=== PATIENT | male | born 1965 ===

== ENCOUNTER 2021-06-04 09:35 | Emergency (ER) | payer SELFPAY ==
[2021-06-04 09:45] VITALS: BP 138/75; PULSE 77; RESP 16; TEMP 36.6; O2SAT 96; BMI 33.6
--- NOTE | 2021-06-04 10:19 | CTR_ITS ---
PROCEDURE INFORMATION: Exam: CT Neck With Contrast Exam date and time: 06/04/2021 12:13 PM Age: 56 years old Clinical indication: Other: Right mastoid pain into; Additional info: Concern for mastoiditis TECHNIQUE: Imaging protocol: Computed tomography images of the neck with contrast. Total images: 274 Radiation optimization: All CT scans at this facility use at least one of these dose optimization techniques: automated exposure control; mA and/or kV adjustment per patient size (includes targeted exams where dose is matched to clinical indication); or iterative reconstruction. Contrast material: OMNIPAQUE 300; Contrast volume: 95 ml; Contrast route: INTRAVENOUS (IV); COMPARISON: No relevant prior studies available. RADIATION DOSE METRICS: Total DLP (mGy-cm): 458.91 FINDINGS: Mastoid air cells: Right mastoid air cells are normally aerated and there are no adjacent inflammatory changes. Nasopharynx: Unremarkable. Oropharynx: Unremarkable. No significant tonsillar enlargement. Hypopharynx: Unremarkable. Larynx: Unremarkable. Normal epiglottis. Retropharyngeal space: Unremarkable. Submandibular/Parotid glands: Slightly higher heterogeneous attenuation of the right parotid gland without significant adjacent fatty stranding but may represent a mild parotiditis. Thyroid: Normal. No enlarged or calcified nodules. Lymph nodes: Unremarkable. No lymphadenopathy. Trachea: Visualized trachea is unremarkable. Lungs: Unremarkable as visualized. Bones/joints: Unremarkable. No acute fracture. Soft tissues: Unremarkable. No significant soft tissue swelling. CT/CT neck w con* [id number] IMPRESSION: 1. Slightly higher heterogeneous attenuation of the right parotid gland without significant adjacent fatty stranding but may represent a mild parotiditis. 2. Right mastoid air cells are normally aerated and there are no adjacent inflammatory changes.
--- NOTE | 2021-06-04 10:36 | W.ED.HA ---
HPI - Headache General: Chief Complaint: Headache Stated Complaint: Pain in the back of neck, meds not working Time Seen by Provider: 06/04/21 09:52 History of Present Illness: Patient comes in complaining of pain behind his right ear that started a couple of days ago. States he woke up with it. Describes it as constant, sharp. Was seen at a clinic yesterday and started on eardrops for otitis externa. States these have not helped. Denies any injury. Denies any medical problems including no diabetes. Associated symptoms: Deny chest pain, fever(s), nausea, rash or vomiting Review of Systems Const: Denies: fever(s) or body aches Eyes: Denies: change in vision or blurry vision ENMT: Denies: throat pain or odynophagia Card: Denies: chest pain or palpitations Resp: Denies: dyspnea or productive cough GI: Denies: abdominal pain, nausea or vomiting : Denies: flank pain or dysuria Musc: Denies: neck pain or back pain Skin/Breast: Denies: rash or pruritus Neuro: Reports: headache(s); Denies: numbness in extremities Psych: Denies: anxiety or change in appetite Endo: Denies: polyuria or excessive sweating PFSH ED PFSH: Medical History No active medical problems Surgical History No history of previous surgery Family History Denies family history of Diabetes Chronic kidney disease (CKD) Suicide Cancer Hypertension Stroke Social History Smoking and tobacco status: never smoked Alcohol intake: current Alcohol intake frequency: holidays/special occasions only Household members: spouse Housing: House Marital status: Number of children: 4 Highest education level completed: High School Graduate service: No Current occupational status: employed Pets and animals: No Current gender identity: Male Physical Exam Const: COMMON NORMALS: no acute distress, patient oriented x3, healthy appearing and alert HENMT: COMMON NORMALS: normocephalic and atraumatic HEAD & SCALP: normocephalic, atraumatic and other (Tenderness to palpation of the right posterior auricular region) Eye: COMMON NORMALS: Equal, round and reactive pupils present and EOMs intact bilaterally PUPIL: Yes Equal, round and reactive pupils present Neck/C-Spine: COMMON NORMALS: full ROM and supple Resp: COMMON NORMALS: normal respiratory effort, No retractions and No use of accessory muscles Cardio: COMMON NORMALS: regular rate and regular rhythm RATE: regular rate RHYTHM: regular rhythm GI: COMMON NORMALS: Normal to inspection, nondistended, normoactive bowel sounds present, Soft to palpation and non-tender PALPATION: Yes Soft to palpation Back/Pelvis: COMMON NORMALS: thoracic and lumbar spine normal to inspection and no thoracic nor lumbar tenderness Extremity: COMMON NORMALS: normal to inspection and full ROM Neuro: COMMON NORMALS: patient oriented x3 SENSORIUM/ORIENTATION: Yes alert Psych: COMMON NORMALS: mental status grossly normal and cooperative Skin: COMMON NORMALS: no rashes or lesions noted and no wounds GENERAL SKIN EXAM: no rashes or lesions noted Course Vital Signs: Vital signs: Vital Signs Temperature 97.9 F 06/04/21 09:45 Pulse Rate 77 06/04/21 09:45 Respiratory Rate 16 06/04/21 09:45 Blood Pressure 138/75 06/04/21 09:45 Pulse Oximetry 96 06/04/21 09:45 MDM - Headache Medical Decision Making Patient comes in complaining of pain behind his right ear that started a couple of days ago. States he woke up with it. Describes it as constant, sharp. Was seen at a clinic yesterday and started on eardrops for otitis externa. States these have not helped. Denies any injury. Denies any medical problems including no diabetes. On physical exam he has tenderness over the right posterior auricular region. Will check labs, treat pain with IV Toradol, check CT scan, and reassess. On reassessment I talked to the patient about the test results. Encouraged him to follow-up with primary care. He states he does not have a primary care doctor and will just get one later. The gentleman who is here with him states they are only here to get pain pills. I informed him that there is no indication for narcotic pain medication at this time. Encouraged him to use anti-inflammatories and heat. Will discharge at this time. Lab Data : 06/04/21 10:45 06/04/21 10:[address] 06/04/21 10:19 IMPRESSION: 1. Slightly higher heterogeneous attenuation of the right parotid gland without significant adjacent fatty stranding but may represent a mild parotiditis. 2. Right mastoid air cells are normally aerated and there are no adjacent inflammatory changes. Laboratory Results WBC 8.5 10^3/uL (4.0-10.0) 06/04/21 10:45 RBC 5.24 10^6/uL (4.1-5.3) 06/04/21 10:45 Hgb 15.6 g/dL (11.7-16.6) 06/04/21 10:45 Hct 47.0 % (42.0-52.0) 06/04/21 10:45 MCV 89.7 fl (80-94) 06/04/21 10:45 MCH 29.8 pg (28.0-34.0) 06/04/21 10:45 MCHC 33.2 g/dL (30.0-36.0) 06/04/21 10:45 RDW 13.4 % (12.1-15.1) 06/04/21 10:45 Plt Count 243 10^3/cmm (130-400) 06/04/21 10:45 MPV 9.5 fL (7.4-10.4) 06/04/21 10:45 Neut % (Auto) 65.9 % 06/04/21 10:45 Lymph % (Auto) 25.3 % 06/04/21 10:45 [place] % (Auto) 6.0 % 06/04/21 10:45 Eos % (Auto) 2.0 % 06/04/21 10:45 Baso % (Auto) 0.4 % 06/04/21 10:45 Neut # (Auto) 5.57 10^3/uL (1.8-7.7) 06/04/21 10:45 Lymph # (Auto) 2.1 10^3/uL (0.8-4.8) 06/04/21 10:45 [place] # (Auto) 0.5 10^3/uL (0.2-0.9) 06/04/21 10:45 Eos # (Auto) 0.2 10^3/uL (0.0-0.8) 06/04/21 10:45 Baso # (Auto) 0.0 10^3/uL (0.0-0.1) 06/04/21 10:45 Nucleated RBC % (auto) 0 % 06/04/21 10:45 Nucleated RBCs # 0.0 /100WBC 06/04/21 10:45 Sodium 139 mmol/L (136-145) 06/04/21 10:45 Potassium 4.2 mmol/L (3.5-5.1) 06/04/21 10:45 Chloride 106 mmol/L (98-107) 06/04/21 10:45 Carbon Dioxide 24 mmol/L (22-29) 06/04/21 10:45 Anion Gap 13.2 (5-19) 06/04/21 10:45 BUN 23 mg/dL (6-20) H 06/04/21 10:45 Creatinine 0.6 mg/dL (0.7-1.2) L 06/04/21 10:45 GFR Calculation 138.4 mL/min (90-130) H 06/04/21 10:45 Glucose 129 mg/dL (65-115) H 06/04/21 10:45 Calculated Osmolality 293 mOsm/kg (285-295) 06/04/21 10:45 Calcium 8.2 mg/dL (8.5-10.5) L 06/04/21 10:45 Total Bilirubin 0.3 mg/dL (0.15-1.2) 06/04/21 10:45 AST 23 U/L (0-40) 06/04/21 10:45 ALT 46 U/L (0-41) H 06/04/21 10:45 Alkaline Phosphatase 117 IU/L (40-130) 06/04/21 10:45 Total Protein 7.3 g/dL (6.6-8.7) 06/04/21 10:45 Albumin 4.3 g/dL (3.5-5.2) 06/04/21 10:45 Globulin 3.0 g/dL (1.3-4.6) 06/04/21 10:45 Discharge Plan Discharge Patient Disposition: Home Clinical Impression: Acute parotitis Condition: Stable Prescriptions: No Action [id number] 3.5-10,000-1 mg/mL-unit/mL-% drops,suspension 4 drp otic (ear) TID 10 Days Qty: 10 0RF Rx Instructions: for 10 days Discharge Orders: Discharge ED (Routine); Ordered 06/04/21 Ordered By: Jarett Zhou Coding Level of Care Code ED Sugar Presser for Chg Fwd Exam Comprehensive
[2021-06-04] MEDS: ketorolac 30 mg/mL INJ IVP (10:40)
[2021-06-04 11:01] LABS: Basophils % 0.4 %; Eosinophils # 0.2 10^3/uL (0.0-0.8); Hemoglobin 15.6 g/dL (11.7-16.6); Lymphocytes # 2.1 10^3/uL (0.8-4.8); Lymphocytes % 25.3 %; Mean Corpuscular HGB Conc 33.2 g/dL (30.0-36.0); Mean Corpuscular Hemoglobin 29.8 pg (28.0-34.0); Mean Corpuscular Volume 89.7 fl (80-94); Mean Platelet Volume 9.5 fL (7.4-10.4); Monocytes # 0.5 10^3/uL (0.2-0.9); Neutrophils # 5.57 10^3/uL (1.8-7.7); Neutrophils % 65.9 %; Nucleated Red Blood Cells % 0 %; Platelet Count 243 10^3/cmm (130-400); Red Blood Count 5.24 10^6/uL (4.1-5.3); Red Cell Distribution Width 13.4 % (12.1-15.1); White Blood Count 8.5 10^3/uL (4.0-10.0)
[2021-06-04 11:33] LABS: Alanine Aminotransferase 46 U/L (0-41); Albumin Level 4.3 g/dL (3.5-5.2); Alkaline Phosphatase 117 IU/L (40-130); Anion Gap 13.2 (5-19); Aspartate Amino Transferase 23 U/L (0-40); Blood Urea Nitrogen 23 mg/dL (6-20); Calcium 8.2 mg/dL (8.5-10.5); Carbon Dioxide 24 mmol/L (22-29); Chloride 106 mmol/L (98-107); Glomerular Filtration Rate 138.4 mL/min (90-130); Glucose 129 mg/dL (65-115); Osmolality Calculated 293 mOsm/kg (285-295); Potassium 4.2 mmol/L (3.5-5.1); Sodium 139 mmol/L (136-145); Total Bilirubin 0.3 mg/dL (0.15-1.2); Total Protein 7.3 g/dL (6.6-8.7)
[2021-06-04] MEDS: iohexol 300 mg/mL 100 mL Btl IV (12:20)
[2021-06-04] MEDS: dexamethasone 10 mg/mL INJ IVP (13:15)
== END 2021-06-04 13:31 | disposition home or self-care (01) ==
PROVIDERS: Emergency Provider Emergency Medicine
DX: K11.21 Acute sialoadenitis (principal)
CPT/HCPCS: 70491; 80053; 85025; 96374; 96375; 99283; J1100; J1885; Q9967

== ENCOUNTER → 2022-08-29 08:39 | Outpatient (BNVA) | payer SELFPAY | PROVIDERS: Visit Provider Nurse Practitioner Family | DX: S69.92XA Unspecified injury of left wrist, hand and finger(s), initial encounter (principal); M86.8X4 Other osteomyelitis, hand; W45.8XXA Other foreign body or object entering through skin, initial encounter | CPT/HCPCS: 73130 ==

== ENCOUNTER → 2023-07-13 10:45 | Outpatient (BNVA) | payer SELFPAY | PROVIDERS: Visit Provider Family Medicine | DX: R05.9 Cough, unspecified (principal); J06.9 Acute upper respiratory infection, unspecified; R07.9 Chest pain, unspecified | CPT/HCPCS: 87400; 87426 ==

== ENCOUNTER 2023-07-25 09:16 | Inpatient (IN) | payer SELFPAY ==
[2023-07-25] VITALS (15 sets, daily range): BP systolic 120–139; BP diastolic 63–79; PULSE 85–103; RESP 18–26; TEMP 36.5–36.6; O2SAT 82–97; BMI 35.4
--- NOTE | 2023-07-25 09:41 | XRR_ITS ---
PROCEDURE INFORMATION: Exam: XR Chest Exam date and time: 07/25/2023 9:48 AM Age: 58 years old Clinical indication: Shortness of breath; Additional info: SOB TECHNIQUE: Imaging protocol: Radiologic exam of the chest. Views: 1 view. COMPARISON: CR XR chest 2V* [id number] 07/24/2023 9:42 AM FINDINGS: Lungs: Unchanged 0.4 cm calcified granuloma in the left lung base. No focal consolidation. Pleural spaces: No large pleural effusion. No distinct pneumothorax. Heart/Mediastinum: Cardiomediastinal silhouette is midline and normal in size. Bones/joints: No acute osseous findings. XR/XR chest 1V portable [id number] IMPRESSION: No acute cardiopulmonary findings.
--- NOTE | 2023-07-25 09:42 | ED_ITS ---
Documented by User: AUTUMN Santos 07/25/23 12:50 HPI - SOB/Dyspnea 2 General: Chief Complaint: Shortness of Breath/Dyspnea Stated Complaint: sob Time Seen by Provider: 07/25/23 09:23 Source: patient and family Mode of arrival: ambulatory Limitations: language barrier (primarily British speaking) History of Present Illness: HPI Narrative: Patient is a 58-year-old male with no known past medical history here along with family for concerns of shortness of breath and cough. Patient is primarily British-speaking and history was obtained through family as well as the help of the lead java software engineer line. Ultimately he tells me that he began feeling short of breath approximately 2 months ago. It significantly worsened over the past few days to the point where he can barely ambulated without feeling significantly winded. Patient has been seen through [facility] on 07/12 as well as [facility] yesterday. On 07/12 he had a negative flu and COVID. He was prescribed Azithromycin as well as Promethazine DM. Yesterday through [facility] he was prescribed doxycycline, furosemide, and albuterol. Today he arrives in the emergency the apartment profoundly dyspneic satting 82% on room air. He is not having chest pain. No reported fevers although clinically he is sweaty and does report chills. He is not a smoker. He has not traveled recently. MD elicited complaint: shortness of breath and cough Onset (ago): month(s) Timing: constant and progressively worsening Severity: severe Exacerbating factors: exertion Relieving factors: nothing Associated symptoms: Reports chest congestion; Deny abdominal pain, chest pain, extremity pain, fever(s), hemoptysis, lightheadedness, nausea, orthopnea, palpitations, syncope or vomiting Treatment prior to arrival: none Related Data: Home oxygen amount: none Review of Systems 2 Const: Reports: chills and fatigue; Denies: fever(s), body aches or malaise Eyes: Denies: change in vision, blurry vision, photophobia, floaters or seeing flashes ENMT: Denies: throat pain, odynophagia, ear or mastoid pain, nasal discharge, nasal congestion or sinus pain Card: Reports: dyspnea on exertion; Denies: chest pain, palpitations, irregular heart rhythm, edema, swelling of feet/ankles, lightheadedness, syncope, pre-syncope, orthopnea, leg pain with exertion or acrocyanosis Resp: Reports: dyspnea, productive cough, pain on inspiration, change in phlegm color and chest congestion; Denies: wheezing, stridor or hemoptysis GI: Denies: abdominal pain, nausea, vomiting, heartburn or diarrhea : Denies: flank pain, difficulty urinating or dysuria Musc: Denies: neck pain, back pain, extremity pain, extremity swelling, joint pain or joint swelling Skin/Breast: Denies: rash Neuro: Denies: headache(s), numbness in extremities, weakness in extremities or sensory changes PFSH ED 2 PFSH: Medical History No active medical problems Surgical History No history of previous surgery Family History Denies family history of Diabetes Chronic kidney disease (CKD) Suicide Cancer Hypertension Stroke Social History Smoking and tobacco/nicotine status: never used tobacco/nicotine Alcohol intake: current Alcohol intake frequency: holidays/special occasions only Substance/Drug Use: never Household members: spouse Housing: House Marital status: Number of children: 4 Highest education level completed: High School Graduate service: No Current occupational status: employed Pets and animals: No Current gender identity: Male Physical Exam 2 Const: COMMON NORMALS: average body habitus, patient oriented x3, no limitations, healthy appearing, alert and well nourished GENERAL APPEARANCE: cooperative and in distress (acute respiratory distress satting 82% on RA) O RIENTATION/CONSCIOUSNESS: Yes awake, Yes oriented to person, Yes oriented to place and Yes oriented to time OTHER: slightly diaphoretic HENMT: COMMON NORMALS: normocephalic and atraumatic HEAD & SCALP: normal to inspection, normocephalic and atraumatic MOUTH: Normal oral and palatal mucosa present and lip normal THROAT: posterior oropharynx normal and tonsils normal Eye: GENERAL EYE: appearance normal, both eyes and all related structures Neck/C-Spine: COMMON NORMALS: full ROM and no lymphadenopathy GENERAL: Yes normal visual inspection Chest: COMMONS NORMALS: normal inspection of the chest and normal palpation of entire chest wall Resp: COMMON NORMALS: No retractions EFFORT & INSPECTION: Yes respiratory distress (acute respiratory distress with hypoxia) AUSCULTATION: rhonchi Cardio: COMMON NORMALS: regular rhythm RATE: tachycardic (borderline-low 100s at times) RHYTHM: regular rhythm GI: COMMON NORMALS: Normal to inspection, nondistended, normoactive bowel sounds present, Soft to palpation and non-tender PALPATION: Yes Soft to palpation : COMMON NORMALS: Yes no CVA tenderness BLADDER/KIDNEY EXAM: Yes no CVA tenderness Back/Pelvis: COMMON NORMALS: no CVA tenderness and thoracic and lumbar spine normal to inspection Extremity: COMMON NORMALS: normal to inspection, full ROM, capillary refill normal, no joint enlargement, no clubbing, cyanosis or edema, no calf tenderness and no pedal edema GENERAL: Yes normal exam except as noted Neuro: JESSICA COMA SCALE: document GCS findings Jessica coma scale eye opening: Spontaneous Jessica coma scale verbal response: Orientated Jessica coma scale motor response: Obey commands Jessica coma scale total score: 15 COMMON NORMALS: patient oriented x3, moves all extremities, no focal motor deficits and no sensory deficits noted SENSORIUM/ORIENTATION: Yes alert, Yes oriented to person, Yes oriented to place and Yes oriented to time Skin: COMMON NORMALS: no rashes or lesions noted GENERAL SKIN EXAM: no rashes or lesions noted Course 2 Consultations: Consultation #1: Dr. Payton-accepts hospitalization to [facility] Vital Signs: Vital signs: Vital Signs Temperature 97.7 F 07/25/23 09:22 Pulse Rate 85 07/25/23 12:03 Respiratory Rate 21 H 07/25/23 10:41 Blood Pressure 136/75 07/25/23 12:03 Pulse Oximetry 97 07/25/23 12:03 Oxygen Delivery Me thod Non-Rebreather 07/25/23 12:03 Oxygen Flow Rate 4 07/25/23 10:22 MDM - SOB/Dyspnea Medical Decision Making Patient is a very nice 58-year-old male who presents to ED today with a complaint of dyspnea. He is found to be in acute respiratory failure with hypoxia satting 82% on room air. Remainder of vitals are stable. His blood work overall actually looks pretty well. He has a normal white count. His D- dimer is only 0.61 which is normal given his age-adjusted value. He has a normal procalcitonin. His lactic is normal. Troponin is normal. BNP is normal. Respiratory panel is unremarkable. His CXR is unremarkable. CTA imaging ordered to rule out any type of obstructive process. No central large pulmonary emboli identified. Radiologist did comment on a single subsegmental partial-occlusion left lower lobe pulmonary artery. Radiologist stated there is some mild hazy attenuation throughout both lungs most likely exacerbated by motion but could not rule out superimposed pneumonitis. Patient is satting well currently on a nonrebreather. Spoke to Dr. Loredo who agrees with plan for admission. Spoke to hospitalist Dr. Payton who will admit to [facility]. Lab Data 07/25/23 09:40 07/25/23 09:40 Labs/Radiology: Radiology Impressions Chest X-Ray 07/25/23 09:41 IMPRESSION: No acute cardiopulmonary findings. Chest CTA 07/25/23 10:18 IMPRESSION: 1. No central large pulmonary emboli. 2. Single subsegmental partial occlusion LEFT lower lobe pulmonary artery. 3. Mild hazy attenuation consistent with pneumonitis, bilateral. 4. Study is compromised by breathing motion artifact. Laboratory Results WBC 10.59 10^3/uL (3.29-11.43) 07/25/23 09:40 RBC 4.93 10^6/uL (3.85-5.65) 07/25/23 09:40 Hgb 14.60 g/dL (11.27-16.99) 07/25/23 09:40 Hct 44.6 % (37-53) 07/25/23 09:40 MCV 90.5 fl (82-101) 07/25/23 09:40 MCH 29.6 pg (27-33) 07/25/23 09:40 MCHC 32.7 g/dL (30-55) 07/25/23 09:40 RDW 13.0 % (12.1-15.1) 07/25/23 09:40 Plt Count 353 10^3/cmm (157-399) 07/25/23 09:40 MPV 9.3 fL (7.4-10.4) 07/25/23 09:40 Neut % (Auto) 74.9 % 07/25/23 09:40 Lymph % (Auto) 15.5 % 07/25/23 09:40 [place] % (Auto) 5.4 % 07/25/23 09:40 Eos % (Auto) 3.3 % 07/25/23 09:40 Baso % (Auto) 0.6 % 07/25/23 09:40 Neut # (Auto) 7.94 10^3/uL (1.8-7.7) H 07/25/23 09:40 Lymph # (Auto) 1.6 10^3/uL (0.8-4.8) 07/25/23 09:40 [place] # (Auto) 0.6 10^3/uL (0.2-0.9) 07/25/23 09:40 Eos # (Auto) 0.4 10^3/uL (0.0-0.8) 07/25/23 09:40 Baso # (Auto) 0.1 10^3/uL (0.0-0.1) 07/25/23 09:40 Nucleated RBC % (auto) 0 % 07/25/23 09:40 Nucleated RBCs # 0.0 /100WBC 07/25/23 09:40 D-Dimer 0.61 ug/mLFEU (0-0.59) H 07/25/23 09:40 Specimen Type Arterial 07/25/23 10:05 Sample Site Brachial, right 07/25/23 10:05 ABG pH 7.43 (7.35-7.45) 07/25/23 10:05 ABG pCO2 49.4 mmHg (35-45) H 07/25/23 10:05 ABG pO2 64.4 mmHg (80.0-100.0) L 07/25/23 10:05 ABG PO2/FiO2 Ratio 0 07/25/23 10:05 ABG HCO3 33.0 mmol/L (22-26) H 07/25/23 10:05 ABG O2 Saturation 94.8 07/25/23 10:05 ABG Base Excess 7.3 mmol/L (-2.0-2.0) H 07/25/23 10:05 Neo Test N/a 07/25/23 10:05 A-a O2 Gradient 16.8 mmHg (5-10) H 07/25/23 10:05 Hematocrit 45.5 % (42-52) 07/25/23 10:05 Hgb O2 Saturation 93.0 % (95-100) L 07/25/23 10:05 Carboxyhemoglobin 1.5 %THgb (0.4-20.1) 07/25/23 10:05 Methemoglobin 0.4 % (0.4-1.5) 07/25/23 10:05 Total Hemoglobin 14.8 g/dL (14-18) 07/25/23 10:05 Sodium 142.0 mmol/L (131-143) 07/25/23 10:05 Potassium 3.1 mmol/L (3.5-5.0) L 07/25/23 10:05 Glucose 152.0 mg/dL (70-115) H 07/25/23 10:05 Ionized Calcium 1.2 mmol/L (1.1-1.4) 07/25/23 10:05 O2 Delivery Device Nc 07/25/23 10:05 O2 Liters/Min 4.0 % 07/25/23 10:05 FiO2 36.0 % 07/25/23 10:05 Payroll Administrator ID [email or web address] 07/25/23 10:05 Sodium 141 mmol/L (136-145) 07/25/23 09:40 Potassium 3.5 mmol/L (3.5-5.1) 07/25/23 09:40 Chloride 101 mmol/L (98-107) 07/25/23 09:40 Carbon Dioxide 27 mmol/L (22-29) 07/25/23 09:40 Anion Gap 16.5 (5-19) 07/25/23 09:40 BUN 12 mg/dL (8-23) 07/25/23 09:40 Creatinine 0.6 mg/dL (0.7-1.2) L 07/25/23 09:40 GFR Calculation 137.4 mL/min (90-130) H 07/25/23 09:40 Glucose 176 mg/dL (65-115) H 07/25/23 09:40 Calculated Osmolality 296 mOsm/kg (285-295) H 07/25/23 09:40 Lactic Acid 2.0 mmol/L (0.5-2.2) 07/25/23 09:40 Calcium 8.7 mg/dL (8.5-10.5) 07/25/23 09:40 Magnesium 2.0 mg/dL (1.7-2.3) 07/25/23 09:40 Total Bilirubin 0.3 mg/dL (0.15-1.2) 07/25/23 09:40 AST 20 U/L (0-40) 07/25/23 09:40 ALT 28 U/L (0-41) 07/25/23 09:40 Alkaline Phosphatase 113 U/L (40-130) 07/25/23 09:40 Troponin T Baseline 8 ng/L (0-15) 07/25/23 09:40 Troponin T 120 Minute 7.22 ng/L (0-15) 07/25/23 12:01 Delta Troponin T -0.78 ABS# (0-10) L 07/25/23 12:01 C-Reactive Protein 34.9 mg/L (0.0-4.9) H 07/25/23 09:40 NT-Pro-B Natriuret Pep 71 pg/mL (0-125) 07/25/23 09:40 Total Protein 8.1 g/dL (6.6-8.7) 07/25/23 09:40 Albumin 3.9 g/dL (3.5-5.2) 07/25/23 09:40 Globulin 4.2 g/dL (1.3-4.6) 07/25/23 09:40 Procalcitonin 0.05 ng/mL (0-0.5) 07/25/23 09:40 Urine Color Yellow (Yellow) 07/25/23 10:45 Urine Appearance Clear (CLEAR) 07/25/23 10:45 Urine pH 5 (5-7) 07/25/23 10:45 Ur Specific [place]utton 1.015 (1.005-1.030) 07/25/23 10:45 Urine Protein Neg (Negative) 07/25/23 10:45 Urine Glucose (UA) Norm (Normal) 07/25/23 10:45 Urine Ketones Negative (Negative) 07/25/23 10:45 Urine Blood Neg (Negative) 07/25/23 10:45 Urine Nitrate Negative (Negative) 07/25/23 10:45 Urine Bilirubin Neg (Negative) 07/25/23 10:45 Urine Urobilinogen Neg mg/dL (Negative) 07/25/23 10:45 Ur Leukocyte Esterase Negative (Negative) 07/25/23 10:45 Adenovirus (PCR) Not detected (NOT DETECT) 07/25/23 10:29 C. pneumoniae DNA (PCR) Not detected (NOT DETECT) 07/25/23 10:29 Coronavirus 229E (PCR) Not detected (NOT DETECT) 07/25/23 10:29 Human Metapneumovir PCR Not detected (NOT DETECT) 07/25/23 10:29 Influenza A (H1) PCR Not detected (NOT DETECT) 07/25/23 10:29 Influ A (H1/09) PCR Not detected (NOT DETECT) 07/25/23 10:29 Influenza A (H3) PCR Not detected (NOT DETECT) 07/25/23 10:29 Influenza Type A (PCR) Not detected (NOT DETECT) 07/25/23 10:29 Influenza Type B (PCR) Not detected (NOT DETECT) 07/25/23 10:29 M. pneumoniae (PCR) Not detected (NOT DETECT) 07/25/23 10:29 Parainfluenza 1 (PCR) Not detected (NOT DETECT) 07/25/23 10:29 Parainfluenza 2 (PCR) Not detected (NOT DETECT) 07/25/23 10:29 Parainfluenza 3 (PCR) Not detected (NOT DETECT) 07/25/23 10:29 Parainfluenza 4 (PCR) Not detected (NOT DETECT) 07/25/23 10:29 RSV Type A (PCR) Not detected (NOT DETECT) 07/25/23 10:29 RSV Type B (PCR) Not detected (NOT DETECT) 07/25/23 10:29 Entero/Rhino (PCR) Not detected (NOT DETECT) 07/25/23 10:29 SARS-CoV-2 (PCR) Not detected (NOT DETECT) 07/25/23 10:29 All radiology interpretation(s) finalized by discharge Discharge Plan Discharge Patient Disposition: Admitted As Inpatient Clinical Impression: Acute hypoxemic respiratory failure Condition: Stable Coding Level of 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 [employer] Documented by User: Jasiel Loredo MD 07/25/23 12:54 HPI - SOB/Dyspnea 2 General: Chief Complaint: Shortness of Breath/Dyspnea Stated Complaint: sob Time Seen by Provider: 07/25/23 09:23 [facility] ED 2 PFSH: Medical History No active medical problems Surgical History No history of previous surgery Family History Denies family history of Diabetes Chronic kidney disease (CKD) Suicide Cancer Hypertension Stroke Social History Smoking and tobacco/nicotine status: never used tobacco/nicotine Alcohol intake: current Alcohol intake frequency: holidays/special occasions only Substance/Drug Use: never Household members: spouse Housing: House Marital status: Number of children: 4 Highest education level completed: High School Graduate service: No Current occupational status: employed Pets and animals: No Current gender identity: Male Physical Exam 2 Neuro: JESSICA COMA SCALE: document GCS findings [place] coma scale total score: 15 Course 2 Vital Signs: Vital signs: Vital Signs Temperature 97.7 F 07/25/23 09:22 Pulse Rate 85 07/25/23 12:03 Respiratory Rate 21 H 07/25/23 10:41 Blood Pressure 136/75 07/25/23 12:03 Pulse Oximetry 97 07/25/23 12:03 Oxygen Delivery Me thod Non-Rebreather 07/25/23 12:03 Oxygen Flow Rate 4 07/25/23 10:22 MDM - SOB/Dyspnea Medical Decision Making Patient is a very nice 58-year-old male who presents to ED today with a complaint of dyspnea. He is found to be in acute respiratory failure with hypoxia satting 82% on room air. Remainder of vitals are stable. His blood work overall actually looks pretty well. He has a normal white count. His D- dimer is only 0.61 which is normal given his age-adjusted value. He has a normal procalcitonin. His lactic is normal. Troponin is normal. BNP is normal. Respiratory panel is unremarkable. His CXR is unremarkable. CTA imaging ordered to rule out any type of obstructive process. No central large pulmonary emboli identified. Radiologist did comment on a single subsegmental partial-occlusion left lower lobe pulmonary artery. Radiologist stated there is some mild hazy attenuation throughout both lungs most likely exacerbated by motion but could not rule out superimposed pneumonitis. Patient is satting well currently on a nonrebreather. Spoke to Dr. Loredo who agrees with plan for admission. Spoke to hospitalist Dr. Payton who will admit to CSU. I discussed this case with Zena Schmitt I agree with her history physical and plan will admit to the hospitalist at this time for hypoxia Lab Data 07/25/23 09:40 07/25/23 09:40 Labs/Radiology: Radiology Impressions Chest X-Ray 07/25/23 09:41 IMPRESSION: No acute cardiopulmonary findings. Chest CTA 07/25/23 10:18 IMPRESSION: 1. No central large pulmonary emboli. 2. Single subsegmental partial occlusion LEFT lower lobe pulmonary artery. 3. Mild hazy attenuation consistent with pneumonitis, bilateral. 4. Study is compromised by breathing motion artifact. Laboratory Results WBC 10.59 10^3/uL (3.29-11.43) 07/25/23 09:40 RBC 4.93 10^6/uL (3.85-5.65) 07/25/23 09:40 Hgb 14.60 g/dL (11.27-16.99) 07/25/23 09:40 Hct 44.6 % (37-53) 07/25/23 09:40 MCV 90.5 fl (82-101) 07/25/23 09:40 MCH 29.6 pg (27-33) 07/25/23 09:40 MCHC 32.7 g/dL (30-55) 07/25/23 09:40 RDW 13.0 % (12.1-15.1) 07/25/23 09:40 Plt Count 353 10^3/cmm (157-399) 07/25/23 09:40 MPV 9.3 fL (7.4-10.4) 07/25/23 09:40 Neut % (Auto) 74.9 % 07/25/23 09:40 Lymph % (Auto) 15.5 % 07/25/23 09:40 [place] % (Auto) 5.4 % 07/25/23 09:40 Eos % (Auto) 3.3 % 07/25/23 09:40 Baso % (Auto) 0.6 % 07/25/23 09:40 Neut # (Auto) 7.94 10^3/uL (1.8-7.7) H 07/25/23 09:40 Lymph # (Auto) 1.6 10^3/uL (0.8-4.8) 07/25/23 09:40 [place] # (Auto) 0.6 10^3/uL (0.2-0.9) 07/25/23 09:40 Eos # (Auto) 0.4 10^3/uL (0.0-0.8) 07/25/23 09:40 Baso # (Auto) 0.1 10^3/uL (0.0-0.1) 07/25/23 09:40 Nucleated RBC % (auto) 0 % 07/25/23 09:40 Nucleated RBCs # 0.0 /100WBC 07/25/23 09:40 D-Dimer 0.61 ug/mLFEU (0-0.59) H 07/25/23 09:40 Specimen Type Arterial 07/25/23 10:05 Sample Site Brachial, right 07/25/23 10:05 ABG pH 7.43 (7.35-7.45) 07/25/23 10:05 ABG pCO2 49.4 mmHg (35-45) H 07/25/23 10:05 ABG pO2 64.4 mmHg (80.0-100.0) L 07/25/23 10:05 ABG PO2/FiO2 Ratio 0 07/25/23 10:05 ABG HCO3 33.0 mmol/L (22-26) H 07/25/23 10:05 ABG O2 Saturation 94.8 07/25/23 10:05 ABG Base Excess 7.3 mmol/L (-2.0-2.0) H 07/25/23 10:05 Neo Test N/a 07/25/23 10:05 A-a O2 Gradient 16.8 mmHg (5-10) H 07/25/23 10:05 Hematocrit 45.5 % (42-52) 07/25/23 10:05 Hgb O2 Saturation 93.0 % (95-100) L 07/25/23 10:05 Carboxyhemoglobin 1.5 %THgb (0.4-20.1) 07/25/23 10:05 Methemoglobin 0.4 % (0.4-1.5) 07/25/23 10:05 Total Hemoglobin 14.8 g/dL (14-18) 07/25/23 10:05 Sodium 142.0 mmol/L (131-143) 07/25/23 10:05 Potassium 3.1 mmol/L (3.5-5.0) L 07/25/23 10:05 Glucose 152.0 mg/dL (70-115) H 07/25/23 10:05 Ionized Calcium 1.2 mmol/L (1.1-1.4) 07/25/23 10:05 O2 Delivery Device Nc 07/25/23 10:05 O2 Liters/Min 4.0 % 07/25/23 10:05 FiO2 36.0 % 07/25/23 10:05 Payroll Administrator ID [email or web address] 07/25/23 10:05 Sodium 141 mmol/L (136-145) 07/25/23 09:40 Potassium 3.5 mmol/L (3.5-5.1) 07/25/23 09:40 Chloride 101 mmol/L (98-107) 07/25/23 09:40 Carbon Dioxide 27 mmol/L (22-29) 07/25/23 09:40 Anion Gap 16.5 (5-19) 07/25/23 09:40 BUN 12 mg/dL (8-23) 07/25/23 09:40 Creatinine 0.6 mg/dL (0.7-1.2) L 07/25/23 09:40 GFR Calculation 137.4 mL/min (90-130) H 07/25/23 09:40 Glucose 176 mg/dL (65-115) H 07/25/23 09:40 Calculated Osmolality 296 mOsm/kg (285-295) H 07/25/23 09:40 Lactic Acid 2.0 mmol/L (0.5-2.2) 07/25/23 09:40 Calcium 8.7 mg/dL (8.5-10.5) 07/25/23 09:40 Magnesium 2.0 mg/dL (1.7-2.3) 07/25/23 09:40 Total Bilirubin 0.3 mg/dL (0.15-1.2) 07/25/23 09:40 AST 20 U/L (0-40) 07/25/23 09:40 ALT 28 U/L (0-41) 07/25/23 09:40 Alkaline Phosphatase 113 U/L (40-130) 07/25/23 09:40 Troponin T Baseline 8 ng/L (0-15) 07/25/23 09:40 Troponin T 120 Minute 7.22 ng/L (0-15) 07/25/23 12:01 Delta Troponin T -0.78 ABS# (0-10) L 07/25/23 12:01 C-Reactive Protein 34.9 mg/L (0.0-4.9) H 07/25/23 09:40 NT-Pro-B Natriuret Pep 71 pg/mL (0-125) 07/25/23 09:40 Total Protein 8.1 g/dL (6.6-8.7) 07/25/23 09:40 Albumin 3.9 g/dL (3.5-5.2) 07/25/23 09:40 Globulin 4.2 g/dL (1.3-4.6) 07/25/23 09:40 Procalcitonin 0.05 ng/mL (0-0.5) 07/25/23 09:40 Urine Color Yellow (Yellow) 07/25/23 10:45 Urine Appearance Clear (CLEAR) 07/25/23 10:45 Urine pH 5 (5-7) 07/25/23 10:45 Ur Specific [place] 1.015 (1.005-1.030) 07/25/23 10:45 Urine Protein Neg (Negative) 07/25/23 10:45 Urine Glucose (UA) Norm (Normal) 07/25/23 10:45 Urine Ketones Negative (Negative) 07/25/23 10:45 Urine Blood Neg (Negative) 07/25/23 10:45 Urine Nitrate Negative (Negative) 07/25/23 10:45 Urine Bilirubin Neg (Negative) 07/25/23 10:45 Urine Urobilinogen Neg mg/dL (Negative) 07/25/23 10:45 Ur Leukocyte Esterase Negative (Negative) 07/25/23 10:45 Adenovirus (PCR) Not detected (NOT DETECT) 07/25/23 10:29 C. pneumoniae DNA (PCR) Not detected (NOT DETECT) 07/25/23 10:29 Coronavirus 229E (PCR) Not detected (NOT DETECT) 07/25/23 10:29 Human Metapneumovir PCR Not detected (NOT DETECT) 07/25/23 10:29 Influenza A (H1) PCR Not detected (NOT DETECT) 07/25/23 10:29 Influ A (H1/09) PCR Not detected (NOT DETECT) 07/25/23 10:29 Influenza A (H3) PCR Not detected (NOT DETECT) 07/25/23 10:29 Influenza Type A (PCR) Not detected (NOT DETECT) 07/25/23 10:29 Influenza Type B (PCR) Not detected (NOT DETECT) 07/25/23 10:29 M. pneumoniae (PCR) Not detected (NOT DETECT) 07/25/23 10:29 Parainfluenza 1 (PCR) Not detected (NOT DETECT) 07/25/23 10:29 Parainfluenza 2 (PCR) Not detected (NOT DETECT) 07/25/23 10:29 Parainfluenza 3 (PCR) Not detected (NOT DETECT) 07/25/23 10:29 Parainfluenza 4 (PCR) Not detected (NOT DETECT) 07/25/23 10:29 RSV Type A (PCR) Not detected (NOT DETECT) 07/25/23 10:29 RSV Type B (PCR) Not detected (NOT DETECT) 07/25/23 10:29 Entero/Rhino (PCR) Not detected (NOT DETECT) 07/25/23 10:29 SARS-CoV-2 (PCR) Not detected (NOT DETECT) 07/25/23 10:29 Discharge Plan Discharge Patient Disposition: Admitted As Inpatient Clinical Impression: Acute hypoxemic respiratory failure Condition: Stable 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
--- NOTE | 2023-07-25 09:42 | ECG_ITS ---
[facility] Test Date: 2023-07-25 Pat Name: Jimmy Gusman Department: Room: Gender: Male Dry Mixer: : 1965 Requested By: Zena Schmitt Order Number: [id number] Spike MD: Jan Beasley M.D. Measurements Intervals [place] Rate: 100 P: 21 DC: 140 QRS: 11 QRSD: 94 T: 53 QT: 334 QTc: 433 Interpretive Statements SINUS TACHYCARDIA INDETERMINATE AXIS INCOMPLETE RIGHT BUNDLE BRANCH BLOCK [90+ ms QRS DURATION, TERMINAL R IN V1/V2, 40+ ms S IN I/aVL/V4/V5/V6] ABNORMAL RHYTHM ECG No previous ECG available for comparison Electronically Signed On 07-25-2023 12:39:30 CDT by Jan Beasley M.D. [id number]
[2023-07-25 09:53] LABS: Basophils # 0.1 10^3/uL (0.0-0.1); Basophils % 0.6 %; Eosinophils # 0.4 10^3/uL (0.0-0.8); Eosinophils % 3.3 %; Hematocrit 44.6 % (37-53); Lymphocytes # 1.6 10^3/uL (0.8-4.8); Lymphocytes % 15.5 %; Mean Corpuscular HGB Conc 32.7 g/dL (30-55); Mean Corpuscular Hemoglobin 29.6 pg (27-33); Mean Corpuscular Volume 90.5 fl (82-101); Mean Platelet Volume 9.3 fL (7.4-10.4); Monocytes # 0.6 10^3/uL (0.2-0.9); Monocytes % 5.4 %; Neutrophils # 7.94 10^3/uL (1.8-7.7); Neutrophils % 74.9 %; Nucleated Red Blood Cells % 0 %; Platelet Count 353 10^3/cmm (157-399); Red Blood Count 4.93 10^6/uL (3.85-5.65); White Blood Count 10.59 10^3/uL (3.29-11.43)
[2023-07-25] MEDS: ipratropium-albuterol 3 mL Neb INHALATION (09:55)
[2023-07-25 10:06] LABS: Troponin(5th) Baseline 8 ng/L (0-15)
[2023-07-25 10:07] LABS: D Dimer 0.61 ug/mLFEU (0-0.59)
[2023-07-25 10:16] LABS: NT Pro B Type Natriuretic Pept 71 pg/mL (0-125); Procalcitonin 0.05 ng/mL (0-0.5)
[2023-07-25 10:16] LABS: ABG PCO2 49.4 mmHg (35-45); ABG PH Result 7.43 (7.35-7.45); Alveolar-Arterial Oxygen Gradi 16.8 mmHg (5-10); Arterial Blood Gas Hematocrit 45.5 % (42-52); Base Excess ABG 7.3 mmol/L (-2.0-2.0); Blood Gas Operator Identificat AMH; Blood Gas Sample Site Brachial, right; Blood Gas Sample Type Arterial; Carboxyhemoglobin 1.5 %THgb (0.4-20.1); Ionized Calcium Level - ABG 1.2 mmol/L (1.1-1.4); Methemoglobin 0.4 % (0.4-1.5); Oxygen Device NC; Oxygen Saturation ABG 94.8; PO2 ABG 64.4 mmHg (80.0-100.0); PO2 FiO2 Ratio Arterial Blood 0; Potassium Level - ABG 3.1 mmol/L (3.5-5.0); Total Hemoglobin 14.8 g/dL (14-18)
--- NOTE | 2023-07-25 10:18 | CT_ITS ---
WS: [id number] CT CHEST ANGIOGRAPHY WITH REFORMATS HISTORY: dyspnea/hypoxia TECHNIQUE: Contiguous axial images are obtained through the chest during arterial injection of intrav enous contrast. Images are reconstructed to evaluate the pulmonary arteries. MIP imaging also reviewe d. All CT scans at [facility] use at least one of these dose optimization techniques: automat ed exposure control; mA and/or kV adjustment per patient size (includes targeted exams where dose is matched to clinical indication); or iterative reconstruction. CONTRAST: Omnipaque 350; 80 mL IV. DLP: 394.25 mGy.cm COMPARISON: None available. Good opacification of the pulmonary arteries. There is no central large pulmonary emboli. No emboli a re identified. Beyond the segmental branches the opacification is becoming limited due to the breathi ng motion artifact. Indeterminate but suspicious for partial occlusion segmental branch LEFT lower lo be. This is seen best on the sagittal reformatted. Mild atherosclerosis aorta. No RIGHT heart strain. No pericardial or pleural effusions. There is mild hazy attenuation in subsolid opacification throughout both lungs. Probably exacerbated by motion but suspected superimposed pneumonitis. No adenopathy or mass. Small hiatal hernia. No adrenal mass. Stranding around the pancreas is probably related to motion art ifact from breathing. Thoracic spondylosis. No bone destruction. CT/CT angio chest PE protcl [id number] IMPRESSION: 1. No central large pulmonary emboli. 2. Single subsegmental partial occlusion LEFT lower lobe pulmonary artery. 3. Mild hazy attenuation consistent with pneumonitis, bilateral. 4. Study is compromised by breathing motion artifact.
[2023-07-25 10:27] LABS: Alanine Aminotransferase 28 U/L (0-41); Albumin Level 3.9 g/dL (3.5-5.2); Alkaline Phosphatase 113 U/L (40-130); Anion Gap 16.5 (5-19); Aspartate Amino Transferase 20 U/L (0-40); Blood Urea Nitrogen 12 mg/dL (8-23); C Reactive Protein 34.9 mg/L (0.0-4.9); Calcium 8.7 mg/dL (8.5-10.5); Carbon Dioxide 27 mmol/L (22-29); Chloride 101 mmol/L (98-107); Creatinine Clr Calc Pharmacy 130.4207; Globulin 4.2 g/dL (1.3-4.6); Glomerular Filtration Rate 137.4 mL/min (90-130); Glucose 176 mg/dL (65-115); Osmolality Calculated 296 mOsm/kg (285-295); Potassium 3.5 mmol/L (3.5-5.1); Sodium 141 mmol/L (136-145); Total Bilirubin 0.3 mg/dL (0.15-1.2); Total Protein 8.1 g/dL (6.6-8.7)
[2023-07-25] MEDS: methylPREDNISolone sod succ 125 mg/2 mL INJ IVP (10:41)
[2023-07-25 10:52] LABS: Add Urine Microscopic? NO; Charge for UA Resulting for Rev
[2023-07-25] MEDS: iohexol 350 mg/mL 500 mL Btl (per mL) IV (11:14)
[2023-07-25 11:17] LABS: Urine Color Yellow (Yellow)
[2023-07-25 11:18] LABS: Bilirubin Urine Neg (Negative); Blood Urine Neg (Negative); Glucose Urine UA Norm (Normal); Ketones Urine Negative (Negative); Leukocyte Esterase Urine Negative (Negative); Nitrate Urine Negative (Negative); Protein Urine Neg (Negative); Specific Gravity, Urine 1.015 (1.005-1.030); Urine Appearance Clear (CLEAR); Urobilinogen Urine Neg (Negative); pH Urine 5 (5-7)
--- NOTE | 2023-07-25 11:42 | ECG_ITS ---
[facility] Test Date: 2023-07-25 Pat Name: Jimmy Gusman Department: Room: Gender: Male Director Instructional Material: : 1965 Requested By: Zena Schmitt Order Number: [id number] Spike MD: Jan Beasley M.D. Measurements Intervals [place] Rate: 83 P: 32 VT: 148 QRS: 23 QRSD: 98 T: 40 QT: 371 QTc: 437 Interpretive Statements SINUS RHYTHM INCOMPLETE RIGHT BUNDLE BRANCH BLOCK [90+ ms QRS DURATION, TERMINAL R IN V1/V2, 40+ ms S IN I/aVL/V4/V5/V6] Compared to ECG 07/25/2023 09:25:13 Sinus tachycardia no longer present Indeterminate axis no longer present Electronically Signed On 07-25-2023 16:19:58 CDT by Jan Beasley M.D. [id number]
[2023-07-25 12:16] LABS: Adenovirus Not Detected (NOT DETECT); Chlamydia Pneumoniae Not Detected (NOT DETECT); Coronavirus 229E,HKU1,NL63,OC4 Not Detected (NOT DETECT); Human Metapneumovirus Not Detected (NOT DETECT); Human Rhinovirus/Enterovirus Not Detected (NOT DETECT); Influenza A Not Detected (NOT DETECT); Influenza A H1 Not Detected (NOT DETECT); Influenza A H1-2009 Not Detected (NOT DETECT); Influenza A H3 Not Detected (NOT DETECT); Influenza B Not Detected (NOT DETECT); Mycoplasma Pneumoniae Not Detected (NOT DETECT); Parainfluenza Virus Type 1 Not Detected (NOT DETECT); Parainfluenza Virus Type 2 Not Detected (NOT DETECT); Parainfluenza Virus Type 3 Not Detected (NOT DETECT); Parainfluenza Virus Type 4 Not Detected (NOT DETECT); Respiratory Syncytial Virus A Not Detected (NOT DETECT); Respiratory Syncytial Virus B Not Detected (NOT DETECT); SARS-COV-2 Not Detected (NOT DETECT)
[2023-07-25 12:24] LABS: Troponin 5 2HR 7.22 ng/L (0-15)
[2023-07-25 12:27] LABS: Troponin 5 2HR Delta -0.78 ABS# (0-10)
--- NOTE | 2023-07-25 12:56 | P.HP_ITS ---
Providers/Chief Complaint 2 Chief Complaint: sob History of Present Illness Jimmy Gusman is a 58 year old male present to the hospital for worsening of shortness of breath. Outpatient patient did receive antibiotics for possible pneumonitis/bronchitis but his symptoms have not improved he has been noticing some cough, this has been going on for last 3 to 4 weeks at least, flu and COVID-negative Rester panel is negative, he was put on Lasix albuterol and doxycycline as well, he is not endorsing fever diarrhea chills or sweating. Patient does not smoke. No recent travel history. Patient is stating that he has been experiencing orthopnea, PND, does not use oxygen on daily basis, he has not noticed any chest pain, no recent travel history, patient consider himself fairly active, no previous history of congestive heart failure or IN or coronary disease. Patient is endorsing productive cough, green sputum production. is at the bedside she is endorsing that he snores a lot at nighttime, he has not been evaluated for sleep apnea. Review of Systems 2 Const: Denies: fever(s) Eyes: Denies: change in vision ENMT: Denies: throat pain Card: Reports: swelling of feet/ankles; Denies: chest pain Resp: Reports: dyspnea GI: Denies: abdominal pain : Denies: flank pain Medications/Allergies Home Medications Medication Instructions Recorded Confirmed Last Taken Type promethazine-DM 6.25 mg-15 mg/5 mL 5 ml PO Q6H PRN cough #160 mL 07/13/23 07/25/23 Unknown Rx oral syrup albuterol sulfate 90 mcg/actuation 2 puff inhalation Q4H PRN 07/25/23 07/25/23 07/24/23 History aerosol inhaler Shortness Of Breath doxycycline hyclate 100 mg capsule 100 mg PO BID 07/25/23 07/25/23 07/25/23 History furosemide 20 mg tablet 20 mg PO DAILY 07/25/23 07/25/23 07/24/23 History Allergies Allergy/AdvReac Type Severity Reaction Status Date / Time No Known Allergies Allergy Verified 08/29/22 08:40 PFSH Acute 2 PFSH: Medical History No active medical problems Surgical History No history of previous surgery Family History Denies family history of Diabetes Chronic kidney disease (CKD) Suicide Cancer Hypertension Stroke Social History Smoking and tobacco/nicotine status: never used tobacco/nicotine Alcohol intake: current Alcohol intake frequency: holidays/special occasions only Substance/Drug Use: never Household members: spouse Housing: House Marital status: Number of children: 4 Highest education level completed: High School Graduate service: No Current occupational status: employed Pets and animals: No Current gender identity: Male Vitals/I&O/Wt Last Vital Signs Temp 97.7 F 07/25/23 09:22 Pulse 85 07/25/23 12:03 Resp 21 H 07/25/23 10:41 BP 136/75 07/25/23 12:03 Pulse Ox 97 07/25/23 12:03 O2 Del Method Non-Rebreather 07/25/23 12:03 O2 Flow Rate 4 07/25/23 10:22 Weight last 48 hrs Weight 90.718 kg Physical Exam 2 Narrative: Patient clinically has mild signs of congestive heart failure with 1+ edema of legs Currently on 8 L nasal cannula Normotensive GCS 15 Nonfocal neuroexam Patient has orthopnea and PND Nonfocal neuroexam Brazilian-speaking Family at the bedside S1, S2 Data 07/25/23 09:40 07/25/23 09:40 Micro: Microbiology 07/25/23 10:25 Blood Culture - Preliminary Blood SPECIMEN COLLECTED 07/25/23 09:40 Blood Culture - Preliminary Blood SPECIMEN COLLECTED A&P Assessment and plan (1) URI (upper respiratory infection): (2) Cough: (3) Acute hypoxemic respiratory failure: (4) New onset of congestive heart failure: Plan Acute hypoxia New onset CHF Will start low-dose Lasix patient is na?ve to Lasix Clinical signs of fluid overload present however BNP is unremarkable will request echo Bronchitis evident on CTA chest No significant large pulmonary embolism Request tick panel Start him on doxycycline along Zosyn Afebrile Nonfocal neuroexam Will request respiratory panel Respiratory to assess and treat on daily basis Will request echo BNP hemoglobin A1c Check phosphorus level Left lower lobe single segment middle partial occlusion of pulmonary artery Will request echo, will put patient on therapeutic Lovenox Full code Attestations 2 Medical Necessity Statement*: Anticipating more than 2 midnights for evaluation of significant hypoxia Diagnoses URI (upper respiratory infection) J06.9 Cough R05.9 Acute hypoxemic respiratory failure J96.01 New onset of congestive heart failure I50.9
--- NOTE | 2023-07-25 15:42 | ECG_ITS ---
[facility] Test Date: 2023-07-25 Pat Name: Jimmy Gusman Department: Room: 108 Gender: Male Buttonhole Maker: : 1965 Requested By: Zena Schmitt Order Number: [id number] Spike MD: Jan Beasley M.D. Measurements Intervals [place] Rate: 86 P: 33 IN: 152 QRS: 42 QRSD: 97 T: 49 QT: 365 QTc: 437 Interpretive Statements SINUS RHYTHM Compared to ECG 07/25/2023 13:09:34 Incomplete right bundle-branch block no longer present Electronically Signed On 07-25-2023 17:42:30 CDT by Jan Beasley M.D. [id number]
--- NOTE | 2023-07-25 16:11 | USCV_ITS ---
Jimmy Gusman Age: 58 Gender: M : 1965 Exam Date: 07/25/2023 16:29 Ordering Phys: Oscar Gil MD Technologist: CT [place]am Location[place] [facility] [place] Indication: chf BP: 154 / 80 HR: 86 Rhythm: Sinus Technical Quality: Adequate MEASUREMENTS (Male / Female) Normal Values 2D ECHO LVOT Diameter 2.2 cm LV Ejection Fraction MOD 2C 73.0 % LV Ejection Fraction 2C AL 71.9 % LA Diameter 3.9 cm RA Systolic Volume 4C AL 36.1 ml RA Systolic Volume 4C MOD 34.3 ml LA Sys Volume AL 27.8 cm cubed LA Sys Volume Index AL 11.0 cm cubed/m squared Aorta at Sinotubular Diameter 2.8 cm M-MODE LA Ao Ratio MM 1.7 AV Cusp Separation MM 2.6 cm DOPPLER AV Peak Velocity 133.0 cm/s LVOT Peak Velocity 132.0 cm/s AV Area Cont Eq vti 3.4 cm squared AV Area Cont Eq pk 3.7 cm squared MV Peak Velocity 99.0 cm/s MV Area PHT 3.5 cm squared Mitral E to A Ratio 0.6 TR Peak Velocity 127.0 cm/s TR Peak Gradient 6.5 mmHg TV Peak E Velocity 69.0 cm/s Right Atrial Pressure 3.0 mmHg Pulmonary Artery Systolic Pressu 9.5 mmHg PV Peak Velocity 102.5 cm/s FINDINGS Left Ventricle Left ventricle is normal in size. LV systolic function is normal with EF of 60-65%. No regional wall motion abnormalities are seen. Grade 1 diastolic dysfunction Right Ventricle Normal in size and function. Right Atrium Normal in size. Left Atrium Normal in size Mitral Valve Structurally normal mitral valve. Mild mitral regurgitation. Aortic Valve Grossly normal. No significant stenosis or regurgitation. Tricuspid Valve Insufficient TR jet to calculate RVSP Pulmonic Valve Not well visualized Pericardium Normal Aorta Normal in size IVC Not well visualized CONCLUSIONS LV systolic function is normal with EF of 60-65% Grade 1 diastolic dysfunction Mild mitral regurgitation No comparison studies are available. Jan Beasley MD (Electronically Signed) Final Date: 26 July 2023 11:46 S
[2023-07-25 16:21] LABS: Troponin 5 6HR 9.33 ng/L (0-15); Troponin 5 6HR Delta 1.33 ng/L (0-12)
[2023-07-25 16:55] LABS: Estmated Average Glucose 151; Hemoglobin A1C 6.9 % (4.0-6.0)
[2023-07-25] MEDS: piperacillin-tazobactam 3.375 GM in sodium chloride 0.9% (plus) 50 ML IV (17:32)
[2023-07-25] MEDS: FUROsemide 10 mg/mL SDV 4mL 40 MG IVP (17:32)
[2023-07-25] MEDS: enoxaparin 100 mg/mL Syringe 90 MG SUBCUT (17:33)
[2023-07-25] MEDS: albuterol 2.5 mg/3 mL Neb INHALATION (19:39)
[2023-07-26] VITALS (17 sets, daily range): BP systolic 105–127; BP diastolic 58–77; PULSE 81–105; RESP 16–25; TEMP 36.2–37.1; O2SAT 88–95; BMI 32.8
[2023-07-26] MEDS: piperacillin-tazobactam 3.375 GM in sodium chloride 0.9% (plus) 50 ML IV ×3 (00:33→17:54)
[2023-07-26 03:38] LABS: Basophils % 0.1 %; Hematocrit 43.6 % (37-53); Lymphocytes # 1.6 10^3/uL (0.8-4.8); Lymphocytes % 12.9 %; Mean Corpuscular HGB Conc 32.6 g/dL (30-55); Mean Corpuscular Hemoglobin 29.5 pg (27-33); Mean Corpuscular Volume 90.6 fl (82-101); Mean Platelet Volume 9.2 fL (7.4-10.4); Monocytes # 0.7 10^3/uL (0.2-0.9); Monocytes % 5.7 %; Neutrophils # 10.12 10^3/uL (1.8-7.7); Neutrophils % 80.7 %; Nucleated Red Blood Cells % 0 %; Platelet Count 373 10^3/cmm (157-399); Red Blood Count 4.81 10^6/uL (3.85-5.65); Red Cell Distribution Width 12.9 % (12.1-15.1); White Blood Count 12.54 10^3/uL (3.29-11.43)
[2023-07-26 04:01] LABS: Anion Gap 14.6 (5-19); Blood Urea Nitrogen 19 mg/dL (8-23); Calcium 9.1 mg/dL (8.5-10.5); Carbon Dioxide 30 mmol/L (22-29); Chloride 100 mmol/L (98-107); Creatinine Clr Calc Pharmacy 97.8156; Glomerular Filtration Rate 98.6 mL/min (90-130); Glucose 201 mg/dL (65-115); Magnesium 2.3 mg/dL (1.7-2.3); Osmolality Calculated 300 mOsm/kg (285-295); Phosphorus 4.6 mg/dL (2.5-4.5); Potassium 3.6 mmol/L (3.5-5.1); Sodium 141 mmol/L (136-145)
[2023-07-26] MEDS: enoxaparin 100 mg/mL Syringe 90 MG SUBCUT ×2 (05:31→17:54)
[2023-07-26] MEDS: albuterol 2.5 mg/3 mL Neb INHALATION ×4 (07:45→20:13)
[2023-07-26] MEDS: sennosides-docusate Tablet 1 TAB PO (08:33)
[2023-07-26 11:02] LABS: Glucose Point of Care 175 mg/dL (70-110)
--- NOTE | 2023-07-26 11:18 | P.PN_ITS ---
Subjective 2 Subjective: Patient this morning was notified about his new diagnosis of type 2 diabetes Troponin trending down Echo report is pending Currently on 5 L nasal cannula saturating 91% Hemodynamically stable Vitals/I&O/Wt Last Vital Signs Temp 97.5 F L 07/26/23 07:53 Pulse 93 07/26/23 11:15 Resp 16 07/26/23 11:15 BP 121/64 07/26/23 07:53 Pulse Ox 93 07/26/23 11:15 O2 Del Method Nasal Cannula 07/26/23 11:15 O2 Flow Rate 5 07/26/23 11:15 07/25/23 07/26/23 07/26/23 22:59 06:59 14:59 Intake Total 50 / 50 50 / 100 360 / 360 Balance 50 / 50 50 / 100 360 / 360 Weight last 48 hrs Weight 83.943 kg Weight 90.718 kg Weight 90.718 kg Physical Exam 2 Narrative: Awake and alert Signs of fluid load improved Currently on 5 L no active wheezing crackles or rhonchi GCS 15 Nonfocal neuroexam Nonfocal neuroexam S1, S2 Hemodynamic stable Data 07/26/23 03:25 07/26/23 03:25 Micro: Microbiology 07/25/23 10:25 Blood Culture - Preliminary Blood NEGATIVE TO DATE 07/25/23 09:40 Blood Culture - Preliminary Blood NEGATIVE TO DATE A&P Assessment and plan (1) New onset type 2 diabetes mellitus: (2) New onset of congestive heart failure: (3) URI (upper respiratory infection): (4) Acute hypoxemic respiratory failure: (5) Cough: (6) Pulmonary embolism: Plan Pulmonary embolism Continue therapeutic Lovenox New onset CHF Continue diuretics New onset diabetes start insulin Will need metformin at the time of discharge Willam Acute hypoxia secondary to PE and CHF Wean oxygen Continue diuresis Likely discharge by tomorrow Echo report is pending Full code Change diet to consistent carb Attestations 2 Medical Necessity Statement*: Discharge tomorrow Diagnoses New onset type 2 diabetes mellitus E11.9 New onset of congestive heart failure I50.9 URI (upper respiratory infection) J06.9 Acute hypoxemic respiratory failure J96.01 Cough R05.9 Pulmonary embolism I26.99
[2023-07-26] MEDS: insulin lispro 100 unit/1 mL SUBCUT ×2 (12:05→17:55)
[2023-07-26 17:12] LABS: Glucose Point of Care 148 mg/dL (70-110)
[2023-07-26 21:16] LABS: Glucose Point of Care 221 mg/dL (70-110)
[2023-07-27] VITALS (7 sets, daily range): BP systolic 92–113; BP diastolic 56–73; PULSE 74–93; RESP 16–19; TEMP 36.7–36.9; O2SAT 87–94; BMI 32.8
[2023-07-27] MEDS: piperacillin-tazobactam 3.375 GM in sodium chloride 0.9% (plus) 50 ML IV (01:20)
[2023-07-27 04:29] LABS: Basophils # 0.1 10^3/uL (0.0-0.1); Basophils % 0.6 %; Eosinophils # 0.5 10^3/uL (0.0-0.8); Eosinophils % 4.5 %; Hematocrit 42.8 % (37-53); Lymphocytes # 2.5 10^3/uL (0.8-4.8); Lymphocytes % 23.8 %; Mean Corpuscular HGB Conc 30.8 g/dL (30-55); Mean Corpuscular Hemoglobin 29.1 pg (27-33); Mean Corpuscular Volume 94.3 fl (82-101); Mean Platelet Volume 10.2 fL (7.4-10.4); Monocytes # 0.7 10^3/uL (0.2-0.9); Monocytes % 7.2 %; Neutrophils # 6.57 10^3/uL (1.8-7.7); Neutrophils % 63.6 %; Nucleated Red Blood Cells % 0 %; Platelet Count 363 10^3/cmm (157-399); Red Blood Count 4.54 10^6/uL (3.85-5.65); Red Cell Distribution Width 13.2 % (12.1-15.1); White Blood Count 10.32 10^3/uL (3.29-11.43)
[2023-07-27 04:51] LABS: Anion Gap 12.5 (5-19); Blood Urea Nitrogen 25 mg/dL (8-23); Calcium 9.2 mg/dL (8.5-10.5); Carbon Dioxide 31 mmol/L (22-29); Chloride 103 mmol/L (98-107); Creatinine Clr Calc Pharmacy 94.0517; Glomerular Filtration Rate 98.6 mL/min (90-130); Glucose 125 mg/dL (65-115); Osmolality Calculated 302 mOsm/kg (285-295); Potassium 3.5 mmol/L (3.5-5.1); Sodium 143 mmol/L (136-145)
[2023-07-27] MEDS: enoxaparin 100 mg/mL Syringe 90 MG SUBCUT (05:28)
[2023-07-27 06:48] LABS: Glucose Point of Care 121 mg/dL (70-110)
[2023-07-27] MEDS: albuterol 2.5 mg/3 mL Neb INHALATION ×2 (08:49→11:18)
--- NOTE | 2023-07-27 09:19 | PM.DCS ---
Discharge Providers Date of Admission: 07/25/23 13:55 Date of Discharge: July 27, 2023 Attending Provider at Admission: Rena Payton MD Attending Provider at Discharge: Oscar Gil MD Diagnoses at Discharge Discharge Diagnosis (1) New onset type 2 diabetes mellitus: Status: Acute (2) New onset of congestive heart failure: Status: Acute (3) URI (upper respiratory infection): Status: Acute (4) Acute hypoxemic respiratory failure: Status: Acute (5) Cough: Status: Acute (6) Pulmonary embolism: Status: Acute Reason for Visit Reason for Visit: sob Hospital Course Hospital Course 58-year-old male without significant past medical history, Bulgarian-speaking, present to the hospital for shortness of breath orthopnea and PND, he was diagnosed with mild CHF, echo showed preserved ejection fraction grade 1 diastolic function, he was diagnosed with sleep apnea, CTA chest showed nonobstructive PE as well, patient required 3 to 4 L of oxygen via nasal cannula, he did not express any chest pain, during this hospitalization he was diagnosed with type 2 diabetes as well. I have counseled the patient to use metformin and Januvia He will need sleep study referral at the time of discharge as well [id number] score, 4, will start him on Eliquis 10 mg twice daily for 7 days then 5 mg twice daily, patient seems to have unprovoked thromboembolic phenomenon Will require 3 L of oxygen at the dc Physical Exam Narrative: Signs of fluid load improving Nonfocal neuroexam GCS 15 Currently on 3 L Nonfocal neuroexam S1, S2 Discharge Data Studies Completed and Pending Completed Studies During Hospitalization Category Date Time Status CTA chest [CT angio chest PE protcl [id number]] Stat Cat Scan 07/25/23 10:18 Completed XR chest 1V portable [id number] Urgent Exams 07/25/23 09:41 Completed CV. echo complete* [id number] Routine Ultrasound 07/25/23 16:11 Completed Pending at discharge Category Date Time Status Blood Culture Stat Lab 07/25/23 10:25 Results Radiology Impressions Chest X-Ray 07/25/23 09:41 IMPRESSION: No acute cardiopulmonary findings. Chest CTA 07/25/23 10:18 IMPRESSION: 1. No central large pulmonary emboli. 2. Single subsegmental partial occlusion LEFT lower lobe pulmonary artery. 3. Mild hazy attenuation consistent with pneumonitis, bilateral. 4. Study is compromised by breathing motion artifact. Laboratory Results WBC 10.32 10^3/uL (3.29-11.43) 07/27/23 03:29 RBC 4.54 10^6/uL (3.85-5.65) 07/27/23 03:29 Hgb 13.20 g/dL (11.27-16.99) 07/27/23 03:29 Hct 42.8 % (37-53) 07/27/23 03:29 MCV 94.3 fl (82-101) 07/27/23 03:29 MCH 29.1 pg (27-33) 07/27/23 03:29 MCHC 30.8 g/dL (30-55) D 07/27/23 03:29 RDW 13.2 % (12.1-15.1) 07/27/23 03:29 Plt Count 363 10^3/cmm (157-399) 07/27/23 03:29 MPV 10.2 fL (7.4-10.4) 07/27/23 03:29 Neut % (Auto) 63.6 % 07/27/23 03:29 Lymph % (Auto) 23.8 % 07/27/23 03:29 [place] % (Auto) 7.2 % 07/27/23 03:29 Eos % (Auto) 4.5 % 07/27/23 03:29 Baso % (Auto) 0.6 % 07/27/23 03:29 Neut # (Auto) 6.57 10^3/uL (1.8-7.7) 07/27/23 03:29 Lymph # (Auto) 2.5 10^3/uL (0.8-4.8) 07/27/23 03:29 [place] # (Auto) 0.7 10^3/uL (0.2-0.9) 07/27/23 03:29 Eos # (Auto) 0.5 10^3/uL (0.0-0.8) 07/27/23 03:29 Baso # (Auto) 0.1 10^3/uL (0.0-0.1) 07/27/23 03:29 Nucleated RBC % (auto) 0 % 07/27/23 03:29 Nucleated RBCs # 0.0 /100WBC 07/27/23 03:29 D-Dimer 0.61 ug/mLFEU (0-0.59) H 07/25/23 09:40 Specimen Type Arterial 07/25/23 10:05 Sample Site Brachial, right 07/25/23 10:05 ABG pH 7.43 (7.35-7.45) 07/25/23 10:05 ABG pCO2 49.4 mmHg (35-45) H 07/25/23 10:05 ABG pO2 64.4 mmHg (80.0-100.0) L 07/25/23 10:05 ABG PO2/FiO2 Ratio 0 07/25/23 10:05 ABG HCO3 33.0 mmol/L (22-26) H 07/25/23 10:05 ABG O2 Saturation 94.8 07/25/23 10:05 ABG Base Excess 7.3 mmol/L (-2.0-2.0) H 07/25/23 10:05 Neo Test N/a 07/25/23 10:05 A-a O2 Gradient 16.8 mmHg (5-10) H 07/25/23 10:05 Hematocrit 45.5 % (42-52) 07/25/23 10:05 Hgb O2 Saturation 93.0 % (95-100) L 07/25/23 10:05 Carboxyhemoglobin 1.5 %THgb (0.4-20.1) 07/25/23 10:05 Methemoglobin 0.4 % (0.4-1.5) 07/25/23 10:05 Total Hemoglobin 14.8 g/dL (14-18) 07/25/23 10:05 Sodium 142.0 mmol/L (131-143) 07/25/23 10:05 Potassium 3.1 mmol/L (3.5-5.0) L 07/25/23 10:05 Glucose 152.0 mg/dL (70-115) H 07/25/23 10:05 Ionized Calcium 1.2 mmol/L (1.1-1.4) 07/25/23 10:05 O2 Delivery Device Nc 07/25/23 10:05 O2 Liters/Min 4.0 % 07/25/23 10:05 FiO2 36.0 % 07/25/23 10:05 Department Of Mathematics Chair ID Amh 07/25/23 10:05 Sodium 143 mmol/L (136-145) 07/27/23 03:29 Potassium 3.5 mmol/L (3.5-5.1) 07/27/23 03:29 Chloride 103 mmol/L (98-107) 07/27/23 03:29 Carbon Dioxide 31 mmol/L (22-29) H 07/27/23 03:29 Anion Gap 12.5 (5-19) 07/27/23 03:29 BUN 25 mg/dL (8-23) H 07/27/23 03:29 Creatinine 0.8 mg/dL (0.7-1.2) 07/27/23 03:29 GFR Calculation 98.6 mL/min (90-130) 07/27/23 03:29 Glucose 125 mg/dL (65-115) H 07/27/23 03:29 POC Glucose 121 mg/dL (70-110) H 07/27/23 06:43 Estimat Average Glucose 151 07/25/23 09:40 Hemoglobin A1c 6.9 % (4.0-6.0) H 07/25/23 09:40 Calculated Osmolality 302 mOsm/kg (285-295) H 07/27/23 03:29 Lactic Acid 2.0 mmol/L (0.5-2.2) 07/25/23 09:40 Calcium 9.2 mg/dL (8.5-10.5) 07/27/23 03:29 Phosphorus 4.6 mg/dL (2.5-4.5) H 07/26/23 03:25 Magnesium 2.3 mg/dL (1.7-2.3) 07/26/23 03:25 Total Bilirubin 0.3 mg/dL (0.15-1.2) 07/25/23 09:40 AST 20 U/L (0-40) 07/25/23 09:40 ALT 28 U/L (0-41) 07/25/23 09:40 Alkaline Phosphatase 113 U/L (40-130) 07/25/23 09:40 Troponin T Baseline 8 ng/L (0-15) 07/25/23 09:40 Troponin T 120 Minute 7.22 ng/L (0-15) 07/25/23 12:01 Delta Troponin T -0.78 ABS# (0-10) L 07/25/23 12:01 Troponin T Hi Sens 6Hr 9.33 ng/L (0-15) 07/25/23 15:40 Troponin T Hi Sens 6Hr Delta 1.33 ng/L (0-12) 07/25/23 15:40 C-Reactive Protein 34.9 mg/L (0.0-4.9) H 07/25/23 09:40 NT-Pro-B Natriuret Pep 71 pg/mL (0-125) 07/25/23 09:40 Total Protein 8.1 g/dL (6.6-8.7) 07/25/23 09:40 Albumin 3.9 g/dL (3.5-5.2) 07/25/23 09:40 Globulin 4.2 g/dL (1.3-4.6) 07/25/23 09:40 Procalcitonin 0.05 ng/mL (0-0.5) 07/25/23 09:40 Urine Color Yellow (Yellow) 07/25/23 10:45 Urine Appearance Clear (CLEAR) 07/25/23 10:45 Urine pH 5 (5-7) 07/25/23 10:45 Ur Specific [place] 1.015 (1.005-1.030) 07/25/23 10:45 Urine Protein Neg (Negative) 07/25/23 10:45 Urine Glucose (UA) Norm (Normal) 07/25/23 10:45 Urine Ketones Negative (Negative) 07/25/23 10:45 Urine Blood Neg (Negative) 07/25/23 10:45 Urine Nitrate Negative (Negative) 07/25/23 10:45 Urine Bilirubin Neg (Negative) 07/25/23 10:45 Urine Urobilinogen Neg mg/dL (Negative) 07/25/23 10:45 Ur Leukocyte Esterase Negative (Negative) 07/25/23 10:45 Adenovirus (PCR) Not detected (NOT DETECT) 07/25/23 10:29 C. pneumoniae DNA (PCR) Not detected (NOT DETECT) 07/25/23 10:29 Coronavirus 229E (PCR) Not detected (NOT DETECT) 07/25/23 10:29 Human Metapneumovir PCR Not detected (NOT DETECT) 07/25/23 10:29 Influenza A (H1) PCR Not detected (NOT DETECT) 07/25/23 10:29 Influ A (H1/09) PCR Not detected (NOT DETECT) 07/25/23 10:29 Influenza A (H3) PCR Not detected (NOT DETECT) 07/25/23 10:29 Influenza Type A (PCR) Not detected (NOT DETECT) 07/25/23 10:29 Influenza Type B (PCR) Not detected (NOT DETECT) 07/25/23 10:29 M. pneumoniae (PCR) Not detected (NOT DETECT) 07/25/23 10:29 Parainfluenza 1 (PCR) Not detected (NOT DETECT) 07/25/23 10:29 Parainfluenza 2 (PCR) Not detected (NOT DETECT) 07/25/23 10:29 Parainfluenza 3 (PCR) Not detected (NOT DETECT) 07/25/23 10:29 Parainfluenza 4 (PCR) Not detected (NOT DETECT) 07/25/23 10:29 RSV Type A (PCR) Not detected (NOT DETECT) 07/25/23 10:29 RSV Type B (PCR) Not detected (NOT DETECT) 07/25/23 10:29 Entero/Rhino (PCR) Not detected (NOT DETECT) 07/25/23 10:29 SARS-CoV-2 (PCR) Not detected (NOT DETECT) 07/25/23 10:29 Vitals Last Vital Signs Temp 98.2 F 07/27/23 08:00 Pulse 81 07/27/23 08:00 Resp 18 07/27/23 08:00 BP 110/66 07/27/23 08:00 Pulse Ox 90 07/27/23 08:00 O2 Del Method High Flow Nasal Cannula 07/27/23 08:00 O2 Flow Rate 3 07/27/23 08:00 Discharge Plan Discharge Patient Disposition: Home Condition: Stable Prescriptions: New Eliquis 5 mg tablet 5 mg PO BID Qty: 120 4RF Rx Instructions: 10 mg twice daily for 7 days then 5 mg twice daily for at least 9 months potassium chloride 10 mEq tablet extended release 10 meq PO DAILY Qty: 60 3RF Rx Instructions: Only take potassium when you take Lasix Janumet 50-1,000 mg tablet 1 tab PO BID Qty: 90 4RF Continued albuterol sulfate 90 mcg/actuation Hfa Aerosol Inhaler 2 puff INHALATION Q4H PRN (Reason: Shortness Of Breath) furosemide 20 mg Tablet 20 mg PO DAILY Qty: 90 0RF Discontinued promethazine-DM 6.25-15 mg/5 mL syrup 5 ml PO Q6H PRN (Reason: cough) Qty: 160 0RF doxycycline hyclate 100 mg Capsule 100 mg PO BID furosemide 20 mg Tablet 20 mg PO DAILY Discharge Orders: Discharge Order (Routine); Ordered 07/27/23 Ordered By: Oscar Gil Other Ambulatory Orders: DME: Oxygen (Order) Location: None Selected Ordered By: Oscar Gil Sleep Study/Titration (Routine) Timeframe: 1 Week Facility: [facility] - Location: [facility] Ordered By: Oscar Gil Patient Instructions: Heart Failure (DC), CHF Stoplight, Opioid Safety Discharge Attestations Time Spent in Discharge Care*: greater than 30 min Quality Metrics Clinical Quality Measures [ No reported AMI, CVA or VTE this stay] Coding Level of Care Code Acute Code for Chg Fwd Diagnoses New onset type 2 diabetes mellitus E11.9 New onset of congestive heart failure I50.9 URI (upper respiratory infection) J06.9 Acute hypoxemic respiratory failure J96.01 Cough R05.9 Pulmonary embolism I26.99
[2023-07-27 11:59] LABS: Glucose Point of Care 111 mg/dL (70-110)
--- NOTE | 2023-07-27 13:16 | PC.NURSE ---
discharge instructions provided in solomon islander and french to pt and spouse and daughter.they verb understanding of instructions.glucometer and medications provided by meds to beds program.pcp visit arranged with surekha.discharged with home o2-via w/c at this time.spouse to drive pt home.
== END 2023-07-27 13:18 | disposition home or self-care (01) | DRG 291 ==
LOC: ER 12:50 → CSU 13:55
PROVIDERS: Admitting Provider Internal Medicine; Emergency Provider Physician Assistant; Visit Provider Internal Medicine
DX: I50.31 Acute diastolic (congestive) heart failure (principal); I26.99 Other pulmonary embolism without acute cor pulmonale; J96.01 Acute respiratory failure with hypoxia; E11.8 Type 2 diabetes mellitus with unspecified complications; J06.9 Acute upper respiratory infection, unspecified; G47.30 Sleep apnea, unspecified
CPT/HCPCS: 36415; 36416; 36600; 71045; 71275; 80048; 80051; 80053; 81003; 82330; 82805; 82962; 83036; 83605; 83735; 83880; 84100; 84145; 84484; 85025; 85378; 86140; 87040; 87486; 87581; 87633; 93005; 93306; 94640; 94664; 94760; 96372; 96374; 99285; J1650; J1815; J1940; J2543; J2919; J7613; Q9967

== ENCOUNTER → 2023-08-11 08:31 | Outpatient (BNVA) | payer SELFPAY | PROVIDERS: PCP Family Medicine; Visit Provider Family Medicine | DX: T14.90XA Injury, unspecified, initial encounter (principal); W57.XXXA Bitten or stung by nonvenomous insect and other nonvenomous arthropods, initial encounter | CPT/HCPCS: 86618; 86666; 86757 ==

== ENCOUNTER 2023-08-14 11:00 | Emergency (ER) | payer SELFPAY ==
[2023-08-14] VITALS (13 sets, daily range): BP systolic 105–126; BP diastolic 71–97; PULSE 94–106; RESP 21–29; TEMP 36.6; O2SAT 91–95
--- NOTE | 2023-08-14 11:04 | ECG_ITS ---
[facility] Test Date: 2023-08-14 Pat Name: Jimmy Gusman Department: Room: Gender: Male Integrated Specialist: : 1965 Requested By: Jasiel Loredo Order Number: [id number] Spike MD: Ceferino Crespo M.D. Measurements Intervals [place] Rate: 105 P: 73 OR: 150 QRS: 204 QRSD: 90 T: 77 QT: 324 QTc: 429 Interpretive Statements SINUS TACHYCARDIA INDETERMINATE AXIS S1-S2-S3 PATTERN, CONSISTENT WITH PULMONARY DISEASE, RVH, OR NORMAL VARIANT Compared to ECG 07/25/2023 17:36:03 Indeterminate axis now present Right ventricular hypertrophy now present Sinus rhythm no longer present Electronically Signed On 08-14-2023 14:48:28 CDT by Ceferino Crespo M.D. [email or web address].[email or web address]/store/[id number]
--- NOTE | 2023-08-14 11:04 | XRR_ITS ---
PROCEDURE INFORMATION: Exam: XR Chest Exam date and time: 08/14/2023 11:24 AM Age: 58 years old Clinical indication: Shortness of breath; Additional info: SOB TECHNIQUE: Imaging protocol: Radiologic exam of the chest. Views: 1 view. COMPARISON: CT angio chest PE protcl [id number] 05/27/2023 11:01 FINDINGS: Lungs: Unremarkable. No consolidation. Pleural spaces: Unremarkable. No pleural effusion. No pneumothorax. Heart/Mediastinum: Unremarkable. No cardiomegaly. Bones/joints: Unremarkable. XR/XR chest 1V portable [id number] IMPRESSION: No acute findings.
--- NOTE | 2023-08-14 11:05 | ED_ITS ---
HPI - SOB/Dyspnea 2 General: Chief Complaint: Shortness of Breath/Dyspnea Stated Complaint: resp distress Time Seen by Provider: 08/14/23 11:00 Source: EMS Mode of arrival: EMS Limitations: language barrier History of Present Illness: HPI Narrative: 58-year-old male is here with EMS he castanon s have a recent new diagnosis of congestive heart failure along with a PE patient was discharged here lower 2 weeks ago he is on 3 L oxygen at home he had gotten short of breath this morning EMS arrived he appeared very anxious and short of breath pulse ox they state was 88% they placed him on a CPAP states that he is calm down had some slight chest pains as well denies any cough denies any fever. He states that when he got up to go to the bathroom today is having worsening chest pain and shortness of breath states he also had a tick bite to his right leg last week went to [facility] had a tick panel sent off unsure the results he has been on doxycycline Associated symptoms: Reports chest pain; Deny abdominal pain, fever(s), nausea or vomiting Review of Systems 2 Const: Denies: fever(s), chills, body aches or change in appetite ENMT: Denies: throat pain or dental pain Card: Reports: chest pain Resp: Reports: dyspnea GI: Denies: abdominal pain, nausea, vomiting or diarrhea Musc: Denies: neck pain or back pain Skin/Breast: Denies: rash Neuro: Denies: headache(s) PFSH ED 2 PFSH: Medical History Pulmonary embolism New onset type 2 diabetes mellitus New onset of congestive heart failure Acute hypoxemic respiratory failure URI (upper respiratory infection) Cough No active medical problems Surgical History No history of previous surgery Family History Denies family history of Diabetes Chronic kidney disease (CKD) Suicide Cancer Hypertension Stroke Social History Smoking and tobacco/nicotine status: never used tobacco/nicotine Alcohol intake: current Alcohol intake frequency: holidays/special occasions only Substance/Drug Use: never Household members: spouse Housing: House Marital status: Number of children: 4 Highest education level completed: High School Graduate service: No Current occupational status: employed Pets and animals: No Current gender identity: Male Physical Exam 2 Const: COMMON NORMALS: patient oriented x3 GENERAL APPEARANCE: in distress HENMT: COMMON NORMALS: normocephalic and atraumatic HEAD & SCALP: n ormocephalic and atraumatic Eye: COMMON NORMALS: Equal, round and reactive pupils present and EOMs intact bilaterally PUPIL: Yes Equal, round and reactive pupils present Neck/C-Spine: COMMON NORMALS: full ROM and supple Chest: COMMONS NORMALS: normal inspection of the chest and normal palpation of entire chest wall Resp: COMMON NORMALS: normal respiratory effort, No retractions, No use of accessory muscles and clear to auscultation bilaterally AUSCULTATION: clear to auscultation bilaterally Cardio: COMMON NORMALS: regular rhythm and No murmurs present (Cardio) R ATE: tachycardic RHYTHM: regular rhythm GI: COMMON NORMALS: Normal to inspection, nondistended, normoactive bowel sounds present, Soft to palpation, non-tender and no masses PALPATION: Yes Soft to palpation Extremity: COMMON NORMALS: normal to inspection and full ROM Neuro: COMMON NORMALS: patient oriented x3, moves all extremities and no focal motor deficits Psych: COMMON NORMALS: mental status grossly normal, Normal thought process present and cooperative THOUGHT PROCESS: Normal thought process present Skin: COMMON NORMALS: no rashes or lesions noted and no wounds GENERAL SKIN EXAM: no rashes or lesions noted Course 2 Vital Signs: Vital signs: Vital Signs Temperature 97.8 F 08/14/23 11:01 Pulse Rate 97 08/14/23 13:15 Respiratory Rate 24 H 08/14/23 13:15 Blood Pressure 111/83 08/14/23 13:15 Pulse Oximetry 93 08/14/23 13:15 Oxygen Delivery Me thod Nasal Cannula 08/14/23 11:01 Oxygen Flow Rate 4 08/14/23 11:01 MDM - SOB/Dyspnea Medical Decision Making Patient presents here with shortness of breath he has been well-appearing here pulse ox here is 95% currently on his 3 L he is x-ray BNP troponins are all negative no signs of fluid overload. Patient is stable for discharge we will get him follow-up with cardiology he is return if worsening he understands agrees plan Medical Records I reviewed the patient's medical records. Lab Data I reviewed the patient's lab results. 08/14/23 11:12 08/14/23 11:12 Labs/Radiology: Radiology Impressions Chest X-Ray 08/14/23 11:04 IMPRESSION: No acute findings. Laboratory Results WBC 10.29 10^3/uL (3.29-11.43) 08/14/23 11:12 RBC 5.22 10^6/uL (3.85-5.65) 08/14/23 11:12 Hgb 15.30 g/dL (11.27-16.99) 08/14/23 11:12 Hct 47.6 % (37-53) 08/14/23 11:12 MCV 91.2 fl (82-101) 08/14/23 11:12 MCH 29.3 pg (27-33) 08/14/23 11:12 MCHC 32.1 g/dL (30-55) 08/14/23 11:12 RDW 12.6 % (12.1-15.1) 08/14/23 11:12 Plt Count 254 10^3/cmm (157-399) 08/14/23 11:12 MPV 10.1 fL (7.4-10.4) 08/14/23 11:12 Neut % (Auto) 73.5 % 08/14/23 11:12 Lymph % (Auto) 15.1 % 08/14/23 11:12 [place] % (Auto) 6.1 % 08/14/23 11:12 Eos % (Auto) 4.5 % 08/14/23 11:12 Baso % (Auto) 0.6 % 08/14/23 11:12 Neut # (Auto) 7.57 10^3/uL (1.8-7.7) 08/14/23 11:12 Lymph # (Auto) 1.6 10^3/uL (0.8-4.8) 08/14/23 11:12 [place] # (Auto) 0.6 10^3/uL (0.2-0.9) 08/14/23 11:12 Eos # (Auto) 0.5 10^3/uL (0.0-0.8) 08/14/23 11:12 Baso # (Auto) 0.1 10^3/uL (0.0-0.1) 08/14/23 11:12 Nucleated RBC % (auto) 0 % 08/14/23 11:12 Nucleated RBCs # 0.0 /100WBC 08/14/23 11:12 PT 13.30 SECONDS (12.1-14.9) 08/14/23 11:12 INR 0.98 (0.8-1.2) 08/14/23 11:12 Specimen Type Arterial 08/14/23 11:13 Sample Site Radial, right 08/14/23 11:13 ABG pH 7.38 (7.35-7.45) 08/14/23 11:13 ABG pCO2 55.4 mmHg (35-45) H 08/14/23 11:13 ABG pO2 56.6 mmHg (80.0-100.0) L 08/14/23 11:13 ABG PO2/FiO2 Ratio 0 08/14/23 11:13 ABG HCO3 33.1 mmol/L (22-26) H 08/14/23 11:13 ABG O2 Saturation 91.6 08/14/23 11:13 ABG Base Excess 6.2 mmol/L (-2.0-2.0) H 08/14/23 11:13 Neo Test Pos 08/14/23 11:13 A-a O2 Gradient 13.6 mmHg (5-10) H 08/14/23 11:13 Hematocrit 46.2 % (42-52) 08/14/23 11:13 Hgb O2 Saturation 90.4 % (95-100) L 08/14/23 11:13 Carboxyhemoglobin 1.1 %THgb (0.4-20.1) 08/14/23 11:13 Methemoglobin 0.2 % (0.4-1.5) L 08/14/23 11:13 Total Hemoglobin 15.1 g/dL (14-18) 08/14/23 11:13 Sodium 140.0 mmol/L (131-143) 08/14/23 11:13 Potassium 3.7 mmol/L (3.5-5.0) 08/14/23 11:13 Glucose 112.0 mg/dL (70-115) 08/14/23 11:13 Ionized Calcium 1.2 mmol/L (1.1-1.4) 08/14/23 11:13 O2 Delivery Device Nc 08/14/23 11:13 O2 Liters/Min 3.0 % 08/14/23 11:13 FiO2 32.0 % 08/14/23 11:13 Television And Radio Repairer ID Amh 08/14/23 11:13 Sodium 139 mmol/L (136-145) 08/14/23 11:12 Potassium 4.1 mmol/L (3.5-5.1) 08/14/23 11:12 Chloride 97 mmol/L (98-107) L 08/14/23 11:12 Carbon Dioxide 31 mmol/L (22-29) H 08/14/23 11:12 Anion Gap 15.1 (5-19) 08/14/23 11:12 BUN 20 mg/dL (8-23) 08/14/23 11:12 Creatinine 0.6 mg/dL (0.7-1.2) L 08/14/23 11:12 GFR Calculation 137.4 mL/min (90-130) H 08/14/23 11:12 Glucose 112 mg/dL (65-115) 08/14/23 11:12 Calculated Osmolality 291 mOsm/kg (285-295) 08/14/23 11:12 Calcium 9.3 mg/dL (8.5-10.5) 08/14/23 11:12 Total Bilirubin 0.4 mg/dL (0.15-1.2) 08/14/23 11:12 AST 17 U/L (0-40) 08/14/23 11:12 ALT 19 U/L (0-41) 08/14/23 11:12 Alkaline Phosphatase 106 U/L (40-130) 08/14/23 11:12 Troponin T Baseline < 6 ng/L (0-15) 08/14/23 11:12 Troponin T 120 Minute 10.95 ng/L (0-15) 08/14/23 12:58 Delta Troponin T 4.48501 ABS# (0-10) 08/14/23 12:58 NT-Pro-B Natriuret Pep < 36 pg/mL (0-125) 08/14/23 11:12 Total Protein 7.8 g/dL (6.6-8.7) 08/14/23 11:12 Albumin 4.2 g/dL (3.5-5.2) 08/14/23 11:12 Globulin 3.6 g/dL (1.3-4.6) 08/14/23 11:12 XR interpretation done by ED provider, pending radiology final review EKG Data EKG 1: I personally reviewed and interpreted this EKG as follows: EKG Interpretation Date: 08/14/23 EKG interpretation time: 11:01 Interpretation: sinus tach hr [address] elevation qrs 90 qtc 385 EKG 2: I personally reviewed and interpreted this EKG as follows: EKG Interpretation Date: 08/14/23 EKG interpretation time: 12:53 Interpretation: nsr hr [address] elevation qrs 93 qtc 387 Discharge Plan Discharge Patient Disposition: Home Clinical Impression: Congestive heart failure Condition: Stable Prescriptions: No Action doxycycline hyclate 100 mg tablet 100 mg PO BID Qty: 20 0RF Eliquis 5 mg tablet 5 mg PO BID Qty: 120 4RF Rx Instructions: 10 mg twice daily for 7 days then 5 mg twice daily for at least 9 months potassium chloride 10 mEq tablet extended release 10 meq PO DAILY Qty: 60 3RF Rx Instructions: Only take potassium when you take Lasix Janumet 50-1,000 mg tablet 1 tab PO BID Qty: 90 4RF furosemide 20 mg Tablet 20 mg PO DAILY Qty: 90 0RF (DME) Accu-Chek Nesha Plus test strp Strip See Rx Instructions .Route Qty: 100 5RF Rx Instructions: As directed (DME) lancets [Accu-Chek Fastclix Lancet Drum] [facility] [place] See Rx Instructions .Route Qty: 200 4RF Rx Instructions: As directed (DME) blood-glucose meter [Accu-Chek Guide Glucose Meter] Mis See Rx Instructions .Route Qty: 1 0RF Rx Instructions: As directed Discharge Orders: Discharge ED (Routine); Ordered 08/14/23 Ordered By: Jasiel Loredo Referrals: Aliyah Ruiz MD [Physician] - 4-7 days Latoya Price MD [Primary Care Provider] - 1-3 days Discharge Diet: Advance as tolerated Discharge Activity: Resume usual activity Patient Instructions: Heart Failure (ED) Coding Level of Care Code ED Oyster Shucker for Chg Malgorzata
[2023-08-14 11:25] LABS: ABG PCO2 55.4 mmHg (35-45); ABG PH Result 7.38 (7.35-7.45); Alveolar-Arterial Oxygen Gradi 13.6 mmHg (5-10); Arterial Blood Gas Hematocrit 46.2 % (42-52); Base Excess ABG 6.2 mmol/L (-2.0-2.0); Blood Gas Allen Test Pos; Blood Gas Operator Identificat AMH; Blood Gas Sample Site Radial, right; Blood Gas Sample Type Arterial; Carboxyhemoglobin 1.1 %THgb (0.4-20.1); HCO3 ABG 33.1 mmol/L (22-26); HGB O2 Sat 90.4 % (95-100); Ionized Calcium Level - ABG 1.2 mmol/L (1.1-1.4); Methemoglobin 0.2 % (0.4-1.5); Oxygen Device NC; Oxygen Saturation ABG 91.6; PO2 ABG 56.6 mmHg (80.0-100.0); PO2 FiO2 Ratio Arterial Blood 0; Potassium Level - ABG 3.7 mmol/L (3.5-5.0); Total Hemoglobin 15.1 g/dL (14-18)
--- NOTE | 2023-08-14 11:35 | PC.PHAR ---
ELIQUIS SHOULD BE 5 MG TWICE DAILY NOW.
[2023-08-14 11:45] LABS: Basophils # 0.1 10^3/uL (0.0-0.1); Basophils % 0.6 %; Eosinophils # 0.5 10^3/uL (0.0-0.8); Eosinophils % 4.5 %; Hematocrit 47.6 % (37-53); Lymphocytes # 1.6 10^3/uL (0.8-4.8); Lymphocytes % 15.1 %; Mean Corpuscular HGB Conc 32.1 g/dL (30-55); Mean Corpuscular Hemoglobin 29.3 pg (27-33); Mean Corpuscular Volume 91.2 fl (82-101); Mean Platelet Volume 10.1 fL (7.4-10.4); Monocytes # 0.6 10^3/uL (0.2-0.9); Monocytes % 6.1 %; Neutrophils # 7.57 10^3/uL (1.8-7.7); Neutrophils % 73.5 %; Nucleated Red Blood Cells % 0 %; Platelet Count 254 10^3/cmm (157-399); Red Blood Count 5.22 10^6/uL (3.85-5.65); Red Cell Distribution Width 12.6 % (12.1-15.1); White Blood Count 10.29 10^3/uL (3.29-11.43)
[2023-08-14 11:46] LABS: Troponin(5th) Baseline < 6 ng/L (0-15)
[2023-08-14 11:56] LABS: INR 0.98 (0.8-1.2)
[2023-08-14 12:01] LABS: Alanine Aminotransferase 19 U/L (0-41); Albumin Level 4.2 g/dL (3.5-5.2); Alkaline Phosphatase 106 U/L (40-130); Anion Gap 15.1 (5-19); Aspartate Amino Transferase 17 U/L (0-40); Blood Urea Nitrogen 20 mg/dL (8-23); Calcium 9.3 mg/dL (8.5-10.5); Carbon Dioxide 31 mmol/L (22-29); Chloride 97 mmol/L (98-107); Creatinine Clr Calc Pharmacy 123.7015; Globulin 3.6 g/dL (1.3-4.6); Glomerular Filtration Rate 137.4 mL/min (90-130); Glucose 112 mg/dL (65-115); NT Pro B Type Natriuretic Pept < 36 pg/mL (0-125); Osmolality Calculated 291 mOsm/kg (285-295); Potassium 4.1 mmol/L (3.5-5.1); Sodium 139 mmol/L (136-145); Total Bilirubin 0.4 mg/dL (0.15-1.2); Total Protein 7.8 g/dL (6.6-8.7)
--- NOTE | 2023-08-14 12:53 | ECG_ITS ---
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 Measurements Intervals [place] Rate: 96 P: 68 [place]: 147 QRS: 235 QRSD: 93 T: 73 QT: 333 QTc: 423 Interpretive Statements SINUS RHYTHM INDETERMINATE AXIS INCOMPLETE RIGHT BUNDLE BRANCH BLOCK [90+ ms QRS DURATION, TERMINAL R IN V1/V2, 40+ ms S IN I/aVL/V4/V5/V6] POSSIBLE RIGHT VENTRICULAR HYPERTROPHY [SOME/ALL OF: PROMINENT R IN V1, LATE TRANSITION, RAD, JOSE DANIEL, SSS] Compared to ECG 08/14/2023 11:01:00 Incomplete right bundle-branch block now present Sinus tachycardia no longer present Electronically Signed On 08-14-2023 14:51:18 CDT by Ceferino Crespo M.D. [id number]
[2023-08-14 13:30] LABS: Troponin 5 2HR 10.95 ng/L (0-15); Troponin 5 2HR Delta 4.95001 ABS# (0-10)
--- NOTE | 2023-08-14 17:27 | DCPLANNER ---
messaged cardiology for er f/u
== END 2023-08-14 14:25 | disposition home or self-care (01) ==
PROVIDERS: Emergency Provider Emergency Medicine; PCP Family Medicine
DX: I50.9 Heart failure, unspecified (principal); R00.0 Tachycardia, unspecified; Z79.01 Long term (current) use of anticoagulants; E11.9 Type 2 diabetes mellitus without complications
CPT/HCPCS: 36415; 36600; 71045; 80051; 80053; 82330; 82805; 83880; 84484; 85025; 85610; 93005; 99285

== ENCOUNTER 2023-08-20 11:28 | Emergency (ER) | payer SELFPAY ==
[2023-08-20] VITALS (10 sets, daily range): BP systolic 130–134; BP diastolic 78–87; PULSE 111–140; RESP 22–27; TEMP 36.9; O2SAT 92–95; BMI 29.2
--- NOTE | 2023-08-20 11:31 | XRR_ITS ---
PROCEDURE INFORMATION: Exam: XR Chest Exam date and time: 08/20/2023 11:59 AM Age: 58 years old Clinical indication: Pain; Chest pressure; Additional info: Chest pain TECHNIQUE: Imaging protocol: Radiologic exam of the chest. Views: 1 view. COMPARISON: CR XR chest 1V portable [id number] 08/14/2023 11:24 AM FINDINGS: Lungs: Unremarkable. No consolidation or mass. Pleural spaces: Unremarkable. No pleural effusion. No pneumothorax. Heart/Mediastinum: Unremarkable. No cardiomegaly. Bones/joints: Unremarkable. XR/XR chest 1V portable [id number] IMPRESSION: No acute findings.
--- NOTE | 2023-08-20 11:50 | PC.NURSE ---
PATIENT RECEIVED 125MG SOLU MEDROL IN ROUTE VIA EMS. DR. PICKENS MADE AWARE, PER VERBAL ORDER FROM DR. PICKENS, CANCEL DOSE OF SOLU MEDROL.
--- NOTE | 2023-08-20 11:52 | ECG_ITS ---
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 Measurements Intervals [place] Rate: 130 P: 56 [place]: 145 QRS: -76 QRSD: 102 T: 59 QT: 304 QTc: 447 Interpretive Statements SINUS TACHYCARDIA LEFT AXIS DEVIATION [QRS AXIS < -30] PATTERN CONSISTENT WITH PULMONARY DISEASE INCOMPLETE RIGHT BUNDLE BRANCH BLOCK [90+ ms QRS DURATION, TERMINAL R IN V1/V2, 40+ ms S IN I/aVL/V4/V5/V6] Compared to ECG 08/14/2023 12:53:22 Left-axis deviation now present Sinus rhythm no longer present Indeterminate axis no longer present Atrial abnormality no longer present Electronically Signed On 08-20-2023 21:03:27 CDT by Aliyah Ruiz M.D. [id number]
[2023-08-20 12:02] LABS: ABG PCO2 81.8 mmHg (35-45); ABG PH Result 7.25 (7.35-7.45); Base Excess ABG 5.4 mmol/L (-2.0-2.0); Blood Gas Operator Identificat AMH; Blood Gas Sample Site Brachial, left; Blood Gas Sample Type Arterial; Carboxyhemoglobin 1.3 %THgb (0.4-20.1); HCO3 ABG 36.1 mmol/L (22-26); HGB O2 Sat 95.1 % (95-100); Ionized Calcium Level - ABG 1.2 mmol/L (1.1-1.4); Methemoglobin 0.6 % (0.4-1.5); Oxygen Device OXY MASK; PO2 ABG 88.6 mmHg (80.0-100.0); Potassium Level - ABG 3.6 mmol/L (3.5-5.0); Total Hemoglobin 15.3 g/dL (14-18)
--- NOTE | 2023-08-20 12:15 | W.ED.SOB ---
HPI - SOB/Dyspnea General: Chief Complaint: Shortness of Breath/Dyspnea Stated Complaint: SOB Time Seen by Provider: 08/20/23 11:31 History of Present Illness: HPI Narrative: 58-year-old man with a history of pulmonary embolism on Eliquis, type 2 diabetes, congestive heart failure, chronic hypoxemic respiratory failure on 3 to 4 L nasal cannula at all times who presents to the emergency room by ambulance with shortness of breath. He says he has been using his oxygen as instructed. On arrival he is diaphoretic and tachycardic. He is hypoxemic. Initially is on a nonrebreather. He received Solu-Medrol and a breathing treatment on the ambulance. He is complaining of some chest tightness. No altered mental status. No focal motor deficits. No abdominal pain. No vomiting. Review of Systems Narrative: Constitutional symptoms: Negative except as documented in HPI. Skin symptoms: Negative except as documented in HPI. Eye symptoms: Negative except as documented in HPI. ENMT symptoms: Negative except as documented in HPI. Respiratory symptoms: Negative except as documented in HPI. Cardiovascular symptoms: Negative except as documented in HPI. Gastrointestinal symptoms: Negative except as documented in HPI. Genitourinary symptoms: Negative except as documented in HPI. Musculoskeletal symptoms: Negative except as documented in HPI. Neurologic symptoms: Negative except as documented in HPI. Psychiatric symptoms: Negative except as documented in HPI. Endocrine symptoms: Negative except as documented in HPI. PFSH ED PFSH: Medical History Pulmonary embolism New onset type 2 diabetes mellitus New onset of congestive heart failure Acute hypoxemic respiratory failure URI (upper respiratory infection) Cough No active medical problems Surgical History No history of previous surgery Family History Denies family history of Diabetes Chronic kidney disease (CKD) Suicide Cancer Hypertension Stroke Social History Smoking and tobacco/nicotine status: never used tobacco/nicotine Alcohol intake: current Alcohol intake frequency: holidays/special occasions only Substance/Drug Use: never Household members: spouse Housing: House Marital status: Number of children: 4 Highest education level completed: High School Graduate service: No Current occupational status: employed Pets and animals: No Current gender identity: Male Physical Exam Narrative: EXAM NARRATIVE: General: Alert, moderate distress. Skin: Warm, diaphoretic. Head: Normocephalic, atraumatic. Neck: Supple, trachea midline. Eye: Extraocular movements are intact. Ears, nose, mouth and throat: Oral mucosa moist. Cardiovascular: Regular, tachycardic, Normal peripheral perfusion. Respiratory: coarse, scattered wheeze, moderate increased wob. tachypnea, prolonged expiratory phase. breath sounds are equal, Symmetrical chest wall expansion. Gastrointestinal: Soft, Nontender, Non distended, Normal bowel sounds. Musculoskeletal: Normal ROM, no deformity. Neurological: Alert and oriented to person, place, time, and situation, No focal neurological deficit observed. Psychiatric: Cooperative, appropriate mood & affect. Course Vital Signs: Vital signs: Vital Signs Temperature 98.4 F 08/20/23 12:00 Pulse Rate 119 H 08/20/23 14:22 Respiratory Rate 24 H 08/20/23 11:56 Blood Pressure 134/78 08/20/23 14:22 Pulse Oximetry 94 08/20/23 14:22 Oxygen Delivery Me thod BiPAP 08/20/23 14:22 Oxygen Flow Rate 10 08/20/23 11:56 Fraction of Inspir ed Oxygen 50 08/20/23 13:55 MDM - SOB/Dyspnea Medical Decision Making Differential diagnosis for patient with shortness of breath includes but is not limited to and based on the above HPI, review of systems and physical exam: Pneumonia. Bronchitis. Asthma or COPD with acute exacerbation. Acute coronary syndrome / NH. Pulmonary embolism. Anxiety. Congestive heart failure. Viral infections including influenza and Covid-19. Atrial fibrillation. Anxiety. Pleural effusion. Pneumothorax. Workup: Lab work, chest X-ray and EKG ordered to evaluate, rule in and rule out above pathologies Chest x-ray: No acute process. No infiltrate. No pneumothorax. This was reviewed and interpreted by myself the ER physician. AB.2 on a nonrebreather. Patient has significant hypoxemia. And significant hypercapnic respiratory failure. He was placed on BiPAP Lab Review: Laboratory results were reviewed and interpreted by myself the emergency room physician. White count is 15,000. Hemoglobin is 15. BUN and creatinine are 22 and 0.6. His D-dimer is still little bit elevated at 1.6. Consultation: I spoke with the hospitalist Dr. Bennett. He evaluated the patient and took an extensive history in the emergency room. The patient has a rather acute onset in the last month of all these respiratory issues. He had been previously healthy and now has asthma/COPD symptoms with hypercapnia. He had a small pulmonary embolus. He has been diagnosed with diastolic heart failure with normal EF. 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 Currently we do not have a tax representative and Dr. Mejia believes that the patient will need a bronc and a pulmonary evaluation which is quite likely. He recommends transfer to a tertiary care where pulmonology is available. I reviewed the patient's medical record. Reexamination: Patient appears a bit improved. He states he feels a little better on BiPAP. Still slightly tachypneic and tachycardic but his heart rate has come down some. Work of breathing has improved some. No altered mental status. No focal motor deficits. Dr. Bennett explained to the patient that he was being transferred and he expresses understanding Assessment and plan: Acute on chronic hypoxemic respiratory failure Acute hypercapnic respiratory failure Diastolic heart failure without exacerbation Pulmonary embolism -I discussed the patient with Dr. Klein at [facility]. She has kindly accepted the patient to her emergency room. ?Patient has received 125 mg of Solu-Medrol, 4 updrafts, and has been placed on BiPAP -Consultation with the hospitalist recommends transfer which is being done - Discussed findings and plan with patient. Answered any questions. - All laboratory values were reviewed and interpreted personally by myself, the ER physician - All imaging was reviewed and interpreted personally by myself, the ER physician. - Evaluation and treatment of this problem were appropriate in the emergency setting -I spent a total of >35 minutes of critical care time managing the patient, independent of any other practitioner. -The time involved in the performance of separately reportable procedures was not counted towards critical care time. Lab Data 08/20/23 11:50 08/20/23 11:50 Labs/Radiology: Radiology Impressions Chest X-Ray 08/20/23 11:31 IMPRESSION: No acute findings. Laboratory Results WBC 14.87 10^3/uL (3.29-11.43) H 08/20/23 11:50 RBC 5.11 10^6/uL (3.85-5.65) 08/20/23 11:50 Hgb 15.10 g/dL (11.27-16.99) 08/20/23 11:50 Hct 47.9 % (37-53) 08/20/23 11:50 MCV 93.7 fl (82-101) 08/20/23 11:50 MCH 29.5 pg (27-33) 08/20/23 11:50 MCHC 31.5 g/dL (30-55) 08/20/23 11:50 RDW 12.3 % (12.1-15.1) 08/20/23 11:50 Plt Count 274 10^3/cmm (157-399) 08/20/23 11:50 MPV 10.0 fL (7.4-10.4) 08/20/23 11:50 Neut % (Auto) 78.3 % 08/20/23 11:50 Lymph % (Auto) 13.3 % 08/20/23 11:50 [place] % (Auto) 5.4 % 08/20/23 11:50 Eos % (Auto) 1.8 % 08/20/23 11:50 Baso % (Auto) 0.6 % 08/20/23 11:50 Neut # (Auto) 11.63 10^3/uL (1.8-7.7) H 08/20/23 11:50 Lymph # (Auto) 2.0 10^3/uL (0.8-4.8) 08/20/23 11:50 [place] # (Auto) 0.8 10^3/uL (0.2-0.9) 08/20/23 11:50 Eos # (Auto) 0.3 10^3/uL (0.0-0.8) 08/20/23 11:50 Baso # (Auto) 0.1 10^3/uL (0.0-0.1) 08/20/23 11:50 Nucleated RBC % (auto) 0 % 08/20/23 11:50 Nucleated RBCs # 0.0 /100WBC 08/20/23 11:50 PT 15.10 SECONDS (12.1-14.9) H 08/20/23 11:50 INR 1.15 (0.8-1.2) 08/20/23 11:50 APTT 34.4 SECONDS (23.9-36.7) 08/20/23 11:50 D-Dimer 1.65 ug/mLFEU (0-0.59) H 08/20/23 11:50 Specimen Type Arterial 08/20/23 11:50 Sample Site Brachial, left 08/20/23 11:50 ABG pH 7.25 (7.35-7.45) L 08/20/23 11:50 ABG pCO2 81.8 mmHg (35-45) H* 08/20/23 11:50 ABG pO2 88.6 mmHg (80.0-100.0) 08/20/23 11:50 ABG HCO3 36.1 mmol/L (22-26) H 08/20/23 11:50 ABG O2 Saturation 97.0 08/20/23 11:50 ABG Base Excess 5.4 mmol/L (-2.0-2.0) H 08/20/23 11:50 Neo Test N/a 08/20/23 11:50 A-a O2 Gradient Not Reportable 08/20/23 11:50 Hematocrit 47.0 % (42-52) 08/20/23 11:50 Hgb O2 Saturation 95.1 % (95-100) 08/20/23 11:50 Carboxyhemoglobin 1.3 %THgb (0.4-20.1) 08/20/23 11:50 Methemoglobin 0.6 % (0.4-1.5) 08/20/23 11:50 Total Hemoglobin 15.3 g/dL (14-18) 08/20/23 11:50 Sodium 142.0 mmol/L (131-143) 08/20/23 11:50 Potassium 3.6 mmol/L (3.5-5.0) 08/20/23 11:50 Glucose 172.0 mg/dL (70-115) H 08/20/23 11:50 Ionized Calcium 1.2 mmol/L (1.1-1.4) 08/20/23 11:50 O2 Delivery Device Oxy mask 08/20/23 11:50 O2 Liters/Min 10.0 % 08/20/23 11:50 Dairy Tester ID Amh 08/20/23 11:50 Sodium 138 mmol/L (136-145) 08/20/23 11:50 Potassium 4.1 mmol/L (3.5-5.1) 08/20/23 11:50 Chloride 95 mmol/L (98-107) L 08/20/23 11:50 Carbon Dioxide 31 mmol/L (22-29) H 08/20/23 11:50 Anion Gap 16.1 (5-19) 08/20/23 11:50 BUN 22 mg/dL (8-23) 08/20/23 11:50 Creatinine 0.6 mg/dL (0.7-1.2) L 08/20/23 11:50 GFR Calculation 137.4 mL/min (90-130) H 08/20/23 11:50 Glucose 163 mg/dL (65-115) H 08/20/23 11:50 Calculated Osmolality 293 mOsm/kg (285-295) 08/20/23 11:50 Lactic Acid 1.0 mmol/L (0.5-2.2) 08/20/23 11:50 Calcium 9.1 mg/dL (8.5-10.5) 08/20/23 11:50 Total Bilirubin 0.4 mg/dL (0.15-1.2) 08/20/23 11:50 AST 28 U/L (0-40) 08/20/23 11:50 ALT 26 U/L (0-41) 08/20/23 11:50 Alkaline Phosphatase 96 U/L (40-130) 08/20/23 11:50 Troponin T Baseline 38 ng/L (0-15) H 08/20/23 11:50 C-Reactive Protein 65.1 mg/L (0.0-4.9) H 08/20/23 11:50 NT-Pro-B Natriuret Pep 205 pg/mL (0-125) H 08/20/23 11:50 Total Protein 7.8 g/dL (6.6-8.7) 08/20/23 11:50 Albumin 4.1 g/dL (3.5-5.2) 08/20/23 11:50 Globulin 3.7 g/dL (1.3-4.6) 08/20/23 11:50 Urine Color Yellow (Yellow) 08/20/23 13:00 Urine Appearance Clear (CLEAR) 08/20/23 13:00 Urine pH 5 (5-7) 08/20/23 13:00 Ur Specific [place] 1.025 (1.005-1.030) 08/20/23 13:00 Urine Protein 1+ (Negative) H 08/20/23 13:00 Urine Glucose (UA) Norm (Normal) 08/20/23 13:00 Urine Ketones Negative (Negative) 08/20/23 13:00 Urine Blood Neg (Negative) 08/20/23 13:00 Urine Nitrate Negative (Negative) 08/20/23 13:00 Urine Bilirubin Neg (Negative) 08/20/23 13:00 Urine Urobilinogen Norm mg/dL (Negative) 08/20/23 13:00 Ur Leukocyte Esterase Negative (Negative) 08/20/23 13:00 Urine RBC None /hpf (0-2) 08/20/23 13:00 Urine WBC Rare /hpf (0-5) 08/20/23 13:00 Ur Squamous Epith Cells None /hpf (0-5) 08/20/23 13:00 Calcium Oxalate Crystal 0-4 /hpf H 08/20/23 13:00 Amorphous Sediment Not Reportable 08/20/23 13:00 Urine Bacteria Trace /hpf (NONE) 08/20/23 13:00 All radiology interpretation(s) finalized by discharge Discharge Plan Discharge Patient Disposition: Xfer Short-Term Hosp Clinical Impression: Hypercapnic respiratory failure, New onset of congestive heart failure, New onset type 2 diabetes mellitus, Pulmonary embolism, Acute on chronic hypoxic respiratory failure Condition: Stable Discharge Orders: Transfer Out of Facility (Order); Ordered 08/20/23 Ordered By: Tori Shen Referrals: Latoya Price MD [Primary Care Provider] - Coding Level of Care Code ED Wallpaper Embosser Helper for [facility] [place]
[2023-08-20] MEDS: ipratropium-albuterol 3 mL Neb INHALATION (12:22)
[2023-08-20] MEDS: albuterol 2.5 mg/3 mL Neb INHALATION (12:22)
[2023-08-20 12:35] LABS: Basophils # 0.1 10^3/uL (0.0-0.1); Basophils % 0.6 %; Eosinophils # 0.3 10^3/uL (0.0-0.8); Eosinophils % 1.8 %; Hematocrit 47.9 % (37-53); Lymphocytes % 13.3 %; Mean Corpuscular HGB Conc 31.5 g/dL (30-55); Mean Corpuscular Hemoglobin 29.5 pg (27-33); Mean Corpuscular Volume 93.7 fl (82-101); Monocytes # 0.8 10^3/uL (0.2-0.9); Monocytes % 5.4 %; Neutrophils # 11.63 10^3/uL (1.8-7.7); Neutrophils % 78.3 %; Nucleated Red Blood Cells % 0 %; Platelet Count 274 10^3/cmm (157-399); Red Blood Count 5.11 10^6/uL (3.85-5.65); Red Cell Distribution Width 12.3 % (12.1-15.1); White Blood Count 14.87 10^3/uL (3.29-11.43)
[2023-08-20 12:46] LABS: INR 1.15 (0.8-1.2); Partial Thromboplastin Time 34.4 SECONDS (23.9-36.7)
[2023-08-20 12:49] LABS: D Dimer 1.65 ug/mLFEU (0-0.59)
[2023-08-20 12:50] LABS: Troponin(5th) Baseline 38 ng/L (0-15)
[2023-08-20 13:00] LABS: Alanine Aminotransferase 26 U/L (0-41); Albumin Level 4.1 g/dL (3.5-5.2); Alkaline Phosphatase 96 U/L (40-130); Aspartate Amino Transferase 28 U/L (0-40); Blood Urea Nitrogen 22 mg/dL (8-23); C Reactive Protein 65.1 mg/L (0.0-4.9); Calcium 9.1 mg/dL (8.5-10.5); Carbon Dioxide 31 mmol/L (22-29); Chloride 95 mmol/L (98-107); Globulin 3.7 g/dL (1.3-4.6); Glomerular Filtration Rate 137.4 mL/min (90-130); Glucose 163 mg/dL (65-115); NT Pro B Type Natriuretic Pept 205 pg/mL (0-125); Osmolality Calculated 293 mOsm/kg (285-295); Sodium 138 mmol/L (136-145); Total Bilirubin 0.4 mg/dL (0.15-1.2); Total Protein 7.8 g/dL (6.6-8.7)
[2023-08-20 13:08] LABS: Anion Gap 16.1 (5-19); Creatinine Clr Calc Pharmacy 118.6615; Potassium 4.1 mmol/L (3.5-5.1)
--- NOTE | 2023-08-20 13:32 | ECG_ITS ---
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 Measurements Intervals [place] Rate: 123 P: 56 RI: 144 QRS: -32 QRSD: 96 T: 50 QT: 315 QTc: 452 Interpretive Statements SINUS TACHYCARDIA INDETERMINATE AXIS INCOMPLETE RIGHT BUNDLE BRANCH BLOCK [90+ ms QRS DURATION, TERMINAL R IN V1/V2, 40+ ms S IN I/aVL/V4/V5/V6] Compared to ECG 08/20/2023 11:52:24 Indeterminate axis now present Left-axis deviation no longer present Electronically Signed On 08-20-2023 21:12:10 CDT by Aliyah Ruiz M.D. [id number]
[2023-08-20 13:35] LABS: Bacteria Urine TRACE /hpf; Bilirubin Urine Neg (Negative); Blood Urine Neg (Negative); Calcium Oxalate Crystals Urine 0-4 /hpf; Glucose Urine UA Norm (Normal); Ketones Urine Negative (Negative); Leukocyte Esterase Urine Negative (Negative); Nitrate Urine Negative (Negative); Protein Urine 1+ (Negative); Specific Gravity, Urine 1.025 (1.005-1.030); Urine Appearance Clear (CLEAR); Urine Color Yellow (Yellow); Urobilinogen Urine Norm (Negative); WBC Urine RARE /hpf (0-5); pH Urine 5 (5-7)
[2023-08-20 13:36] LABS: Add Urine Culture? No
--- NOTE | 2023-08-20 14:14 | P.CONIM_ITS ---
Providers/Reason For Consult 2 Consulting Physician/Specialty*: Dr. Bennett Reason for Consult*: Respiratory faliure Primary Care Provider: Latoya Price MD History of Present Illness History of Present Illness Jimmy Gusman is a 58 year old male with recent diagnosis of diastolic heart failure with grade 1 diastolic dysfunction, small PE, type 2 diabetes mellitus with recurrent Admissions and visits to the ER with the last 1 month or difficulty in breathing presents to the ER today via EMS for shortness of breath which has been getting worse. On arrival of the EMS at home he was found saturation of 40% for which she was transferred to the ER on 10 L of oxygen mask where he was found to have a respiratory acidosis with pH of 7.25, pCO2 of 81, pO2 of 88.6 and he was placed on BiPAP 18/6. On examination with germination testing manager at bedside patient was on BiPAP, awake and alert saturating 92% with heart rate running in 120s. 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 Originally from [place] and moved to around 40 years ago. Questionable history of tuberculosis back in [place]. Cannot confirm if was completely treated. Patient as per the caregiver has been having episodes of diaphoresis, confusion on and off, weight loss. Patient has been taking his diuretics, anticoagulation and diabetes medication as advised. Has been checking his weight regularly but has been feeling more and more short of breath. Patient also has been having mild pain in his fingers and toes and has had trouble with his right knee for a long time for which he has followed up with outpatient physicians for many years. Denies any sick contacts, anybody sick around him. Denies any smoking. As per the germination testing manager the house usually smells of mold. Review of Systems 2 General: Reports: 10 or more systems reviewed and unremarkable except in HPI and below Const: Denies: fever(s), chills, body aches, change in appetite, change in weight, malaise, night sweats, diaphoresis, change in sleep pattern, daytime sleepiness or snoring Eyes: Denies: change in vision, blurry vision, photophobia, eye discomfort or eye discharge ENMT: Denies: throat pain, enlarged tonsils, hoarseness, mouth pain, oral sores, dry mouth, tinnitus, nasal congestion or post nasal drip Card: Denies: chest pain, palpitations, irregular heart rhythm, edema, swelling of feet/ankles, lightheadedness, syncope, pre-syncope, dyspnea on exertion, orthopnea, leg pain with exertion or acrocyanosis Resp: Denies: dyspnea, productive cough, non-productive cough, wheezing, stridor, pain on inspiration, change in phlegm color, hemoptysis or chest congestion GI: Denies: abdominal pain, nausea, vomiting, hematemesis, coffee ground emesis, dysphagia, heartburn, diarrhea, constipation, bloating, GI cramping, change in bowel habits, pain on defecation, hematochezia or melena : Denies: flank pain, difficulty urinating, dysuria, urinary frequency, urinary urgency, urinary hesitancy, urinary dribbling, difficulty starting urination, change in urine stream, nocturia or hematuria Musc: Denies: neck pain, back pain, extremity pain, joint pain, joint swelling, joint redness, joint stiffness or limited range of motion Neuro: Denies: headache(s), numbness in extremities, weakness in extremities, sensory changes, lack of coordination, difficulty walking, frequent falls, dizziness, vertigo, confusion, Slurred speech present, difficulty communicating thoughts or seizure-like activity Psych: Denies: anxiety, depression, mood swings, panic attacks, hopelessness or irritability Endo: Denies: polyuria, polydipsia, tired all the time, cold intolerance, excessive sweating, flushing or heat intolerance Vik/Lymph: Denies: easy bruising or easy bleeding All/Imm: Denies: tongue swelling, facial swelling or acute wheezing Medications/Allergies Home Medications Medication Instructions Recorded Confirmed Last Taken Type apixaban 5 mg tablet (Eliquis) 5 mg PO BID #120 tabs 07/27/23 08/14/23 Unknown Rx blood sugar diagnostic (Accu-Chek #100 ea 07/27/23 08/14/23 Unknown Rx Nesha Plus test strips) blood-glucose meter (Accu-Chek #1 ea 07/27/23 08/14/23 Unknown Rx Guide Glucose Meter) furosemide 20 mg tablet 20 mg PO DAILY #90 tabs 07/27/23 08/14/23 Unknown Rx lancets (Accu-Chek Fastclix Lancet #200 ea 07/27/23 08/14/23 Unknown Rx Drum) potassium chloride 10 mEq 10 meq PO DAILY #60 tabs 07/27/23 08/14/23 Unknown Rx tablet,extended release sitagliptin phosphate 50 1 tab PO BID #90 tabs 07/27/23 08/14/23 Unknown Rx mg-metformin 1,000 mg tablet (Janumet) doxycycline hyclate 100 mg tablet 100 mg PO BID #20 tabs 08/10/23 08/14/23 Unknown Rx Allergies Allergy/AdvReac Type Severity Reaction Status Date / Time No Known Allergies Allergy Verified 08/14/23 11:15 PFSH Acute 2 PFSH: Medical History Pulmonary embolism New onset type 2 diabetes mellitus New onset of congestive heart failure Acute hypoxemic respiratory failure URI (upper respiratory infection) Cough No active medical problems Surgical History No history of previous surgery Family History Denies family history of Diabetes Chronic kidney disease (CKD) Suicide Cancer Hypertension Stroke Social History Smoking and tobacco/nicotine status: never used tobacco/nicotine Alcohol intake: current Alcohol intake frequency: holidays/special occasions only Substance/Drug Use: never Household members: spouse Housing: House Marital status: Number of children: 4 Highest education level completed: High School Graduate service: No Current occupational status: employed Pets and animals: No Current gender identity: Male Vitals/I&O/Wt Last Vital Signs Temp 98.4 F 08/20/23 12:00 Pulse 121 H 08/20/23 13:55 Resp 24 H 08/20/23 11:56 BP 130/87 08/20/23 13:26 Pulse Ox 94 08/20/23 13:55 O2 Del Method BiPAP 08/20/23 13:26 O2 Flow Rate 10 08/20/23 11:56 FiO2 50 08/20/23 13:55 Weight last 48 hrs Weight 74.843 kg Physical Exam 2 Narrative: General: No acute distress, AO x3, sick appearing, on BiPAP HEENT: PERRLA, pupils bilaterally equal and reactive Chest: Bilateral bronchial breath sounds all over lung turcios with diffuse rhonchi CVS: S1-S2 regular, no murmurs, no tachycardia, no gallops, no rubs Abdomen: Soft, nontender, no organomegaly, bowel sounds present Neuro: No focal deficits, no facial deformity, AO x3, power 5/5 in all limbs Data 08/20/23 11:50 08/20/23 11:50 Micro: Microbiology 08/20/23 11:54 Blood Culture - Preliminary Blood SPECIMEN COLLECTED 08/20/23 11:50 Blood Culture - Preliminary Blood SPECIMEN COLLECTED A&P Assessment and plan (1) Acute respiratory failure with hypoxia and hypercapnia: Does not have history of documented COPD. Recently diagnosed of grade 1 diastolic dysfunction, small pulmonary embolism. Symptoms have been getting worse over the last 1 month. Patient has a history of tuberculosis around 40 years ago back in [place] with a questionable possibility of treatment. Check QuantiFERON, LDH, beta D glucan. Check YVETTE panel. Patient gives history of joint pains. CRP mildly elevated. Check ESR, Histoplasma urine antigen. (2) Respiratory acidosis: (3) Congestive heart failure: (4) Pulmonary embolism: (5) New onset type 2 diabetes mellitus: Plan Currently patient is in respiratory distress with hypercapnia and hypoxia along with respiratory acidosis. Patient is on BiPAP. Patient on presentation was awake and alert. Patient's mentation has remained stable on BiPAP currently. Going forward patient would need a event specialist food demonstrator, bronchoscopy for workup and etiology of respiratory failure getting worse over last 1 week as patient's diastolic dysfunction and pulmonary embolism was very mild in nature as described on previous admissions. Patient does have past history of being exposed to tuberculosis, mold. For current care patient will need further and subsequent ABGs for weaning of BiPAP. Discussed in detail with patient, germination testing manager, family member at bedside, ER physician that given all of the above and at current with less capabilities of our institution to perform serial ABGs which would be important for patient care, event specialist food demonstrator and bronchoscopy need it would be best to transfer patient to a tertiary center. Family is agreeable. Meanwhile we will continue inhalation treatment with ipratropium, Xopenex, Pulmicort twice daily. Solu-Medrol 40 mg every 6 hourly. Continue with Eliquis. Fluid restriction up to 1500 cc. Patient should also be on broad-spectrum antibiotics given recent admission, mild leukocytosis with IV Zosyn and vancomycin. Consult Attestations 2 Medical Necessity Statement: Patient needs transfer to a higher center for need of event specialist food demonstrator, bronchoscopy with serial needs of ABGs which currently we are not able to perform at our institution. Diagnoses Acute respiratory failure with hypoxia and hypercapnia J96.01; J96.02 Respiratory acidosis E87.29 Congestive heart failure I50.9 Pulmonary embolism I26.99 New onset type 2 diabetes mellitus E11.9
[2023-08-20 14:45] LABS: Erythrocyte Sedimentation Rate 100 mm/hr (0-10)
[2023-08-20 15:09] LABS: Troponin 5 2HR 101.1 ng/L (0-15); Troponin 5 2HR Delta 63.1 ABS# (0-10)
[2023-08-20 15:21] LABS: Lactate Dehydrogenase 216 U/L (135-225)
[2023-08-20 15:55] LABS: Adenovirus Not Detected (NOT DETECT); Chlamydia Pneumoniae Not Detected (NOT DETECT); Coronavirus 229E,HKU1,NL63,OC4 Not Detected (NOT DETECT); Human Metapneumovirus Not Detected (NOT DETECT); Human Rhinovirus/Enterovirus Not Detected (NOT DETECT); Influenza A Not Detected (NOT DETECT); Influenza A H1 Not Detected (NOT DETECT); Influenza A H1-2009 Not Detected (NOT DETECT); Influenza A H3 Not Detected (NOT DETECT); Influenza B Not Detected (NOT DETECT); Mycoplasma Pneumoniae Not Detected (NOT DETECT); Parainfluenza Virus Type 1 Not Detected (NOT DETECT); Parainfluenza Virus Type 2 Not Detected (NOT DETECT); Parainfluenza Virus Type 3 Not Detected (NOT DETECT); Parainfluenza Virus Type 4 Not Detected (NOT DETECT); Respiratory Syncytial Virus A Not Detected (NOT DETECT); Respiratory Syncytial Virus B Not Detected (NOT DETECT); SARS-COV-2 Not Detected (NOT DETECT)
[2023-08-20] MEDS: enoxaparin 80 mg/0.8 mL Syringe 70 MG SUBCUT (16:05)
[2023-08-22 14:53] LABS: Anti-Double Strand DNA AB 1 IU/mL; Jo-1 Antibody <1.0 NEG AI (<1.0 NEG); SS-B/LA IGG <1.0 NEG AI (<1.0 NEG); Scleroderma Ab(Scl-70) Ab <1.0 NEG AI (<1.0 NEG); Ss-A/Ro Igg <1.0 NEG AI (<1.0 NEG)
[2023-08-23 18:34] LABS: Quantiferon Mitogen 0.06 IU/mL; Quantiferon Nil 0.01 IU/mL; Quantiferon TB Gold INDETERMINATE (NEGATIVE)
[2023-08-25 16:32] LABS: Fungitell 1-3-B Glucan Assay <31 pg/ml; Interpretation Negative (Negative)
[2023-08-29 14:10] LABS: Histoplasma Antigen (Quant) NONE DETECTED; Histoplasma Antigen Interpreta NEGATIVE; Histoplasma Antigen Specimen URINE
== END 2023-08-20 17:30 | disposition short-term general hospital (02) ==
PROVIDERS: Student in an Organized Health Care Education/Training Program; Emergency Provider Emergency Medicine; PCP Family Medicine
DX: J96.22 Acute and chronic respiratory failure with hypercapnia (principal); J96.21 Acute and chronic respiratory failure with hypoxia; E11.9 Type 2 diabetes mellitus without complications; I26.99 Other pulmonary embolism without acute cor pulmonale; I50.9 Heart failure, unspecified; Z86.711 Personal history of pulmonary embolism; Z79.01 Long term (current) use of anticoagulants; Z99.81 Dependence on supplemental oxygen; R00.0 Tachycardia, unspecified; I45.10 Unspecified right bundle-branch block
CPT/HCPCS: 36415; 36600; 71045; 80051; 80053; 81001; 82330; 82805; 83605; 83615; 83880; 84484; 85025; 85378; 85610; 85651; 85730; 86140; 86225; 86235; 86480; 87040; 87077; 87150; 87186; 87205; 87385; 87449; 87486; 87581; 87633; 93005; 94640; 94660; 96372; 99285; 99291; J1650; J7613